=== PATIENT | female | born 1935 | race Caucasian/White ===

== ENCOUNTER → 2017-12-23 11:40 | Outpatient (CLI) | payer OTHER, SELFPAY ==
--- NOTE | 2017-12-23 11:42 | DI.RAD.S_ITS ---
PROCEDURE: XR LUMBAR SPINE 2-3V INDICATIONS: chronic low back pain TECHNIQUE: 3 views of the lumbar spine were acquired. COMPARISON: [facility], , L-SPINE 2-3 VIEWS, 03/21/2015, 10:54. FINDINGS: Bones: 5 lbg-[id number] vertebrae are present. There is slight anterolisthesis at L4-5 unchanged. Degenerative disc narrowing at all lumbar levels. Facet sclerosis L3-S1. No vertebral body compression fractures. No suspicious bony lesions. Soft tissues: Overlying bowel gas pattern is normal. No suspicious soft tissue calcifications. IMPRESSION: No acute bony abnormality. 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 Dictated by: Denilson Srivastava M.D. on 12/23/2017 at 12:05 Approved by: Denilson Srivastava M.D. on 12/23/2017 at 12:08
== END ==
PROVIDERS: Family Provider Physician Assistant; PCP Physician Assistant; Visit Provider Physician Assistant
DX: M51.36 Other intervertebral disc degeneration, lumbar region (principal); M47.816 Spondylosis without myelopathy or radiculopathy, lumbar region; M54.5 Low back pain; G89.29 Other chronic pain
CPT/HCPCS: 72100

== ENCOUNTER → 2017-12-26 12:33 | Outpatient (CLI) | payer OTHER, SELFPAY ==
--- NOTE | 2017-12-26 12:35 | DI.RAD.S_ITS ---
PROCEDURE: XR HIP W PEL IF DONE LT MIN 4V INDICATIONS: BILATERAL HIP PAIN TECHNIQUE: AP pelvis with lateral view(s) of the bilateral hip(s). COMPARISON: [facility], , XR PELVIS WITH BILATERAL HIPS, 06/18/2004, 15:25. FINDINGS: Bones: No fractures or dislocations. Pelvic ring appears intact. No suspicious bony lesions. Hip joint space narrowing is present bilaterally, associated with marginal spurring of the acetabula and femoral heads, left greater than right. Sacroiliac joints appear maintained. Soft tissues: The visualized bowel gas pattern is normal. No suspicious soft tissue calcifications. IMPRESSION: 1. No fracture dislocation or diastases. 2. Degenerative joint disease left greater than right. Dictated by: Denilson Srivastava M.D. on 12/26/2017 at 13:09 Approved by: Denilson Srivastava M.D. on 12/26/2017 at 13:11
== END ==
PROVIDERS: Family Provider Physician Assistant; PCP Physician Assistant; Visit Provider Physician Assistant
DX: M16.0 Bilateral primary osteoarthritis of hip (principal); M25.551 Pain in right hip; M25.552 Pain in left hip
CPT/HCPCS: 73522

== ENCOUNTER → 2018-02-27 13:18 | Outpatient (CLI) | payer OTHER, SELFPAY ==
--- NOTE | 2018-02-27 | DI.MRI.S_ITS ---
PROCEDURE: MR LUMBAR SPINE WO CON INDICATIONS: LOW BACK PAIN TECHNIQUE: Noncontrast sagittal T1 spin echo and T2 fast echo, sagittal STIR, axial T1 and T2 fast spin echo through the lumbar spine. In cases with scoliosis, additional coronal T2 fast spin echo may be performed. COMPARISON: [facility], CR, XR LUMBAR SPINE 2-3V, 12/23/2017, 11:25. FINDINGS: Image quality: Excellent. Alignment and Curvature: There is normal bony alignment. Bone Marrow: Scattered small Schmorl's nodes are present with adjacent marrow edema, in particular involving the superior endplate of L2 and superior endplate of L4. No acute vertebral body compression fractures. Spinal Cord: Conus medullaris terminates at the L1 level. Visualized cord demonstrates normal signal and size. Paraspinous Soft Tissues: No paravertebral masses. L1-L2: Mild broad-based posterior disc bulge bilateral facet disease. Mild canal narrowing. Mild left and right foraminal narrowing. L2-L3: Posterior fissure and broad-based posterior disc bulge. Bilateral facet arthropathy. There is also prominent dorsal epidural fat and associated severe canal stenosis. Mild right foraminal narrowing. No definite left foraminal stenosis. L3-L4: Broad-based posterior disc bulge and bilateral facet disease. Moderate canal stenosis which is exaggerated by dorsal epidural fat. Severe left and mild right foraminal narrowing. L4-L5: Posterior fissure with broad-based posterior disc bulge and bilateral facet disease. There is also prominent dorsal epidural lipomatosis. Mild to moderate canal narrowing. Mild to moderate right and mild left foraminal stenoses. L5-S1: Bilateral facet arthropathy. No canal stenosis. Mild bilateral foraminal stenoses. IMPRESSION: Severe canal stenosis at L2-L3. Moderate L4-L5 canal stenosis. Severe left L3-L4 foraminal narrowing Prominent multilevel dorsal epidural lipomatosis. Dictated by: Vasu Mahoney M.D. on 02/27/2018 at 15:48 Approved by: Vasu Mahoney M.D. on 02/27/2018 at 15:58
== END ==
PROVIDERS: Family Provider Physician Assistant; PCP Physician Assistant; Visit Provider Orthopaedic Surgery
DX: M48.061 Spinal stenosis, lumbar region without neurogenic claudication (principal); M54.5 Low back pain
CPT/HCPCS: 72148

== ENCOUNTER → 2018-03-10 09:18 | Outpatient (CLI) | payer OTHER, SELFPAY ==
[2018-03-10 10:10] LABS: Alanine Aminotransferase 32 IU/L (9-52); Albumin 4.5 g/dL (3.5-5.0); Albumin Globulin Ratio 1.7 (1.0-2.8); Alkaline Phosphatase 66 U/L (38-126); Aspartate Aminotransferase 35 IU/L (14-36); BUN Creatinine Ratio 14.4 (6-22); Bilirubin Total 0.7 mg/dL (0.2-1.3); Blood Urea Nitrogen 13 mg/dL (7-17); Calcium 9.6 mg/dL (8.4-10.2); Carbon Dioxide 29 mmol/L (22-32); Chloride 103 mmol/L (98-107); Cholesterol 252 mg/dL (140-199); Estimated Glomerular Filt Rate 59.9 mL/min (>60); Globulin 2.7 g/dL (1.7-4.1); Glucose 90 mg/dL (80-110); HDL Cholesterol 63 mg/dL (40-60); HEMOLYSIS < 15 (0-50); LDL Cholesterol Calculated 169 mg/dL (<100); Potassium 4.4 mmol/L (3.4-5.1); Sodium 141 mmol/L (137-145); Total Protein 7.2 g/dL (6.3-8.2); Triglycerides 101 mg/dL (35-150)
== END ==
PROVIDERS: Family Provider Physician Assistant; PCP Physician Assistant; Visit Provider Physician Assistant
DX: I10 Essential (primary) hypertension (principal); E78.5 Hyperlipidemia, unspecified
CPT/HCPCS: 36415; 80053; 80061

== ENCOUNTER → 2018-08-18 13:40 | Outpatient (CLI) | payer OTHER, SELFPAY ==
[2018-08-18 14:51] LABS: Aspartate Aminotransferase 33 IU/L (14-36); Cholesterol 173 mg/dL (140-199); HDL Cholesterol 70 mg/dL (40-60); LDL Cholesterol Calculated 75 mg/dL (<100); Triglycerides 140 mg/dL (35-150)
== END ==
PROVIDERS: PCP Physician Assistant; Visit Provider Internal Medicine Cardiovascular Disease
DX: I10 Essential (primary) hypertension (principal); E78.5 Hyperlipidemia, unspecified
CPT/HCPCS: 36415; 80061; 84450

== ENCOUNTER → 2018-09-26 10:26 | Outpatient (CLI) | payer OTHER, SELFPAY ==
--- NOTE | 2018-09-26 | DI.MG.S_ITS ---
BILATERAL DIGITAL SCREENING MAMMOGRAM 3D/2D WITH CAD: 09/26/2018 CLINICAL: Routine screening. Comparison is made to exams dated: 09/01/2017 mammogram, 08/23/2016 mammogram, and 08/20/2015 mammogram - [facility]. The tissue of both breasts is heterogeneously dense. This may lower the sensitivity of mammography. Current study was also evaluated with a Computer Aided Detection (CAD) system. There are benign vascular calcifications in both breasts. There are mole markers on the left breast. No significant masses, calcifications, or other findings are seen in either breast. There has been no significant interval change. IMPRESSION: There is no mammographic evidence of malignancy. A 1 year screening mammogram is recommended. This exam was interpreted at Station ID: [id number]. NOTE: For mammograms, a report in lay terms will be sent to the patient. Approximately 15% of breast malignancies will not be visualized mammographically. In the management of a palpable breast mass, a negative mammogram must not discourage biopsy of a clinically suspicious lesion. Electronically Signed By: Alex menchaca/car:09/26/2018 17:13:35 letter sent: Normal Exam ACR BI-RADS Category 2: Benign Finding(s) 3342F
== END ==
PROVIDERS: PCP Physician Assistant; Visit Provider Physician Assistant
DX: Z12.31 Encounter for screening mammogram for malignant neoplasm of breast (principal)
CPT/HCPCS: 77063; 77067

== ENCOUNTER → 2019-08-14 10:24 | Outpatient (CLI) | payer MEDICARE, SELFPAY ==
[2019-08-14 13:00] LABS: Alanine Aminotransferase 33 IU/L (<35); Albumin 4.4 g/dL (3.5-5.0); Albumin Globulin Ratio 1.7 (1.0-2.8); Alkaline Phosphatase 79 U/L (38-126); Aspartate Aminotransferase 41 IU/L (14-36); Bilirubin Total 0.6 mg/dL (0.2-1.3); Blood Urea Nitrogen 12 mg/dL (7-17); Calcium 9.8 mg/dL (8.4-10.2); Carbon Dioxide 28 mmol/L (22-32); Chloride 102 mmol/L (98-107); Cholesterol 186 mg/dL (140-199); Estimated Glomerular Filt Rate > 60.0 mL/min (>60); Globulin 2.6 g/dL (1.7-4.1); Glucose 99 mg/dL (80-110); HDL Cholesterol 60 mg/dL (40-60); HEMOLYSIS < 15 (0-50); LDL Cholesterol Calculated 97 mg/dL (<100); Potassium 4.5 mmol/L (3.4-5.1); Sodium 138 mmol/L (137-145); Triglycerides 147 mg/dL (35-150)
[2019-08-14 13:14] LABS: Free T3, Triiodothyronine Free 2.58 pg/mL (2.77-5.27); Free T4, Direct Thyroxine 0.71 ng/dL (0.78-2.19)
[2019-08-14 13:28] LABS: Thyroid Stimulating Hormone 0.43 uIU/mL (0.47-4.68)
[2019-08-14 14:27] LABS: Creatinine Urine Random 41.5 mg/dL
[2019-08-14 14:50] LABS: Microalbumi Creatinin Ratio Ur 14.4 ug/mg CR (<30); Microalbumin Urine Random < 0.6 mg/dL (0-1.6)
== END ==
PROVIDERS: PCP Physician Assistant; Referring Provider Physician Assistant; Visit Provider Physician Assistant
DX: E78.5 Hyperlipidemia, unspecified (principal); I10 Essential (primary) hypertension
CPT/HCPCS: 36415; 80053; 80061; 82043; 82570; 84439; 84443; 84481

== ENCOUNTER → 2019-11-12 16:52 | Outpatient (CLI) | payer MEDICARE, SELFPAY ==
[2019-11-12 17:54] LABS: Alanine Aminotransferase 22 IU/L (<35); Albumin 4.7 g/dL (3.5-5.0); Albumin Globulin Ratio 1.6 (1.0-2.8); Alkaline Phosphatase 94 U/L (38-126); Aspartate Aminotransferase 32 IU/L (14-36); BUN Creatinine Ratio 21.6 (6-22); Bilirubin Total 0.3 mg/dL (0.2-1.3); Blood Urea Nitrogen 16 mg/dL (7-17); Calcium 9.9 mg/dL (8.4-10.2); Carbon Dioxide 25 mmol/L (22-32); Chloride 106 mmol/L (98-107); Estimated Glomerular Filt Rate > 60.0 mL/min (>60); Globulin 2.9 g/dL (1.7-4.1); Glucose 93 mg/dL (80-110); HEMOLYSIS < 15 (0-50); Potassium 3.9 mmol/L (3.4-5.1); Sodium 141 mmol/L (137-145); Total Protein 7.6 g/dL (6.3-8.2)
[2019-11-12 18:03] LABS: NT-proBNP (BNP-Adult 18+) 77 pg/mL (<450)
== END ==
PROVIDERS: PCP Physician Assistant; Referring Provider Family Medicine; Visit Provider Family Medicine
DX: I10 Essential (primary) hypertension (principal)
CPT/HCPCS: 36415; 80053; 83880

== ENCOUNTER → 2020-01-01 11:02 | Outpatient (CLI) | payer MEDICARE, SELFPAY ==
--- NOTE | 2020-01-01 11:04 | DI.MG.S_ITS ---
BILATERAL DIGITAL SCREENING MAMMOGRAM 3D/2D WITH CAD: 01/01/2020 CLINICAL: Routine screening. Comparison is made to exams dated: 09/26/2018 mammogram, 09/01/2017 mammogram, and 08/23/2016 mammogram - [facility]. The tissue of both breasts is heterogeneously dense. This may lower the sensitivity of mammography. Current study was also evaluated with a Computer Aided Detection (CAD) system. There are benign calcifications in both breasts. There also are benign vascular calcifications in both breasts. There are mole markers on the left breast. No significant masses, calcifications, or other findings are seen in either breast. There has been no significant interval change. IMPRESSION: There is no mammographic evidence of malignancy. A 1 year screening mammogram is recommended. This exam was interpreted at Station ID: [id number]. NOTE: For mammograms, a report in lay terms will be sent to the patient. Approximately 15% of breast malignancies will not be visualized mammographically. In the management of a palpable breast mass, a negative mammogram must not discourage biopsy of a clinically suspicious lesion. Electronically Signed By: Jose blum/car:01/01/2020 12:34:33 copy to: LAURIE EASTON letter sent: Normal Exam ACR BI-RADS Category 2: Benign Finding(s) 3342F
== END ==
PROVIDERS: PCP Family Medicine; Referring Provider Family Medicine; Visit Provider Physician Assistant
DX: Z12.31 Encounter for screening mammogram for malignant neoplasm of breast (principal)
CPT/HCPCS: 77063; 77067

== ENCOUNTER → 2020-05-01 09:23 | Outpatient (CLI) | payer MEDICARE, SELFPAY ==
[2020-05-01 09:46] LABS: Hematocrit 39.1 % (36-46); Hemoglobin 12.9 g/dL (12.0-16.0); Mean Corpuscular HGB Conc 33.1 % (30-36); Mean Corpuscular Hemoglobin 30.9 PG (26-34); Mean Corpuscular Volume 93.3 fL (80-100); Platelet Count 236 X10^3/uL (150-400); Red Blood Cell Count 4.19 X10^6/uL (4.0-5.2); Red Cell Distribution Width 12.5 % (11.6-14.8); White Blood Cell Count 4.8 X10^3/uL (4.5-11.0)
[2020-05-01 10:01] LABS: Alanine Aminotransferase 22 IU/L (<35); Albumin 4.4 g/dL (3.5-5.0); Albumin Globulin Ratio 1.7 (1.0-2.8); Alkaline Phosphatase 67 U/L (38-126); Aspartate Aminotransferase 33 IU/L (14-36); BUN Creatinine Ratio 18.9 (6-22); Bilirubin Total 0.5 mg/dL (0.2-1.3); Blood Urea Nitrogen 17 mg/dL (7-17); Calcium 9.4 mg/dL (8.4-10.2); Carbon Dioxide 31 mmol/L (22-32); Chloride 97 mmol/L (98-107); Estimated Glomerular Filt Rate 59.7 mL/min (>60); Globulin 2.6 g/dL (1.7-4.1); Glucose 97 mg/dL (80-110); HEMOLYSIS < 15 (0-50); Sodium 129 mmol/L (137-145)
[2020-05-01 10:57] LABS: Free T3, Triiodothyronine Free 2.03 pg/mL (2.77-5.27); Free T4, Direct Thyroxine 0.82 ng/dL (0.78-2.19)
[2020-05-01 11:11] LABS: Thyroid Stimulating Hormone 0.863 uIU/mL (0.47-4.68)
== END ==
PROVIDERS: PCP Nurse Practitioner Family; Referring Provider Nurse Practitioner Family; Visit Provider Nurse Practitioner Family
DX: R79.89 Other specified abnormal findings of blood chemistry (principal); I10 Essential (primary) hypertension; Z00.00 Encounter for general adult medical examination without abnormal findings
CPT/HCPCS: 36415; 80053; 84439; 84443; 84481; 85027

== ENCOUNTER → 2020-05-07 12:29 | Outpatient (CLI) | payer MEDICARE, SELFPAY | PROVIDERS: PCP Nurse Practitioner Family; Referring Provider Nurse Practitioner Family; Visit Provider Nurse Practitioner Family | DX: M85.851 Other specified disorders of bone density and structure, right thigh (principal); Z78.0 Asymptomatic menopausal state; Z87.891 Personal history of nicotine dependence | CPT/HCPCS: 77080 ==

== ENCOUNTER → 2020-10-22 08:36 | Outpatient (CLI) | payer MEDICARE, SELFPAY ==
[2020-10-22 09:57] LABS: BUN Creatinine Ratio 18.8 (6-22); Blood Urea Nitrogen 16 mg/dL (7-17); Calcium 9.7 mg/dL (8.4-10.2); Carbon Dioxide 28 mmol/L (22-32); Chloride 99 mmol/L (98-107); Estimated Glomerular Filt Rate > 60.0 mL/min (>60); Glucose 94 mg/dL (80-110); HEMOLYSIS < 15 (0-50); Potassium 4.1 mmol/L (3.4-5.1); Sodium 133 mmol/L (137-145)
== END ==
PROVIDERS: PCP Nurse Practitioner Family; Referring Provider Nurse Practitioner Family; Visit Provider Nurse Practitioner Family
DX: E87.1 Hypo-osmolality and hyponatremia (principal); I10 Essential (primary) hypertension
CPT/HCPCS: 36415; 80048

== ENCOUNTER → 2020-12-03 13:51 | Outpatient (CLI) | payer MEDICARE, SELFPAY ==
--- NOTE | 2020-12-03 13:52 | DI.RAD.S_ITS ---
PROCEDURE: XR LUMBAR SPINE 2-3V INDICATIONS: back pain TECHNIQUE: 3 views of the lumbar spine were acquired. COMPARISON: [facility], CR, XR LUMBAR SPINE 2-3V, 12/23/2017, 11:25. FINDINGS: Bones: 5 lcz-mrk-[id number] vertebrae are present. Endplate sclerosis. Small osteophytes. Multilevel intervertebral disc space height sign poss. There is normal bony alignment. No vertebral body compression fractures. No suspicious bony lesions. Soft tissues: Overlying bowel gas pattern is normal. No suspicious soft tissue calcifications. IMPRESSION: Ibch-mo-pomcaxpp degenerative change in the lumbar spine. Dictated by: Tae Zamora M.D. on 12/03/2020 at 16:39 Approved by: Tae Zamora M.D. on 12/03/2020 at 16:42
--- NOTE | 2020-12-03 13:52 | DI.RAD.S_ITS ---
PROCEDURE: XR THORACIC SPINE 2V INDICATIONS: back pain TECHNIQUE: 3 views of the thoracic spine were acquired. COMPARISON: None. FINDINGS: Bones: No fractures or dislocations. No suspicious bony lesions. Moderate degenerative change in the thoracic spine. 12 pairs of ribs are noted, and appear intact where visualized. Soft tissues: No paravertebral stripe thickening. IMPRESSION: Moderate degenerative change in the thoracic spine. Dictated by: Tae Zamora M.D. on 12/03/2020 at 16:37 Approved by: Tae Zamora M.D. on 12/03/2020 at 16:39
--- NOTE | 2020-12-03 13:52 | DI.RAD.S_ITS ---
PROCEDURE: XR CERVICAL SPINE 2V OR 3V INDICATIONS: back pain TECHNIQUE: 3 view(s) of the cervical spine were acquired. COMPARISON: None. FINDINGS: Bones: No fractures or dislocations to the T1 level. Severe degenerative change the cervical spine. The lateral masses of C1 appear intact on the odontoid view. No suspicious bony lesions. Soft tissues: No prevertebral soft tissue swelling. IMPRESSION: Severe cervical spine degenerative change. Dictated by: Tae Zamora M.D. on 12/03/2020 at 16:29 Approved by: Tae Zamora M.D. on 12/03/2020 at 16:37
== END ==
PROVIDERS: PCP Nurse Practitioner Family; Referring Provider Nurse Practitioner Family; Visit Provider Nurse Practitioner Family
DX: M48.061 Spinal stenosis, lumbar region without neurogenic claudication (principal); M54.9 Dorsalgia, unspecified
CPT/HCPCS: 72040; 72070; 72100

== ENCOUNTER → 2021-01-21 11:14 | Outpatient (CLI) | payer MEDICARE, SELFPAY ==
--- NOTE | 2021-01-21 11:16 | DI.MG.S_ITS ---
BILATERAL DIGITAL SCREENING MAMMOGRAM 3D/2D WITH CAD: 01/21/2021 CLINICAL: Routine screening. Comparison is made to exams dated: 01/01/2020 mammogram, 09/26/2018 mammogram, and 09/01/2017 mammogram - [facility]. The tissue of both breasts is heterogeneously dense. This may lower the sensitivity of mammography. Current study was also evaluated with a Computer Aided Detection (CAD) system. There are benign calcifications in both breasts. There also are benign vascular calcifications in both breasts. There are mole markers on the left breast. No significant masses, calcifications, or other findings are seen in either breast. There has been no significant interval change. IMPRESSION: BENIGN There is no mammographic evidence of malignancy. A 1 year screening mammogram is recommended. This exam was interpreted at Station ID: [id number]. NOTE: For mammograms, a report in lay terms will be sent to the patient. Approximately 15% of breast malignancies will not be visualized mammographically. In the management of a palpable breast mass, a negative mammogram must not discourage biopsy of a clinically suspicious lesion. Electronically Signed By: Jose blum/car:01/21/2021 11:42:51 copy to: LAURIE EASTON letter sent: Normal Exam ACR BI-RADS Category 2: Benign Finding(s) 3342F
== END ==
PROVIDERS: PCP Nurse Practitioner Family; Referring Provider Nurse Practitioner Family; Visit Provider Nurse Practitioner Family
DX: Z12.31 Encounter for screening mammogram for malignant neoplasm of breast (principal)
CPT/HCPCS: 77063; 77067

== ENCOUNTER → 2021-04-20 09:49 | Outpatient (CLI) | payer MEDICARE, SELFPAY ==
[2021-04-20 11:23] LABS: BUN Creatinine Ratio 18.8 (6-22); Blood Urea Nitrogen 15 mg/dL (7-17); Calcium 9.8 mg/dL (8.4-10.2); Carbon Dioxide 28 mmol/L (22-32); Chloride 99 mmol/L (98-107); Cholesterol 184 mg/dL (140-199); Estimated Glomerular Filt Rate > 60.0 mL/min (>60); Glucose 95 mg/dL (80-110); HDL Cholesterol 76 mg/dL (40-60); HEMOLYSIS < 15 (0-50); LDL Cholesterol Calculated 90 mg/dL (<100); Potassium 4.9 mmol/L (3.4-5.1); Sodium 133 mmol/L (137-145); Triglycerides 92 mg/dL (35-150)
[2021-04-20 11:33] LABS: Vitamin D 25 Hydroxy (D3) 59.9 ng/mL (30.0-100.0)
== END ==
PROVIDERS: PCP Nurse Practitioner Family; Referring Provider Nurse Practitioner Family; Visit Provider Nurse Practitioner Family
DX: E78.5 Hyperlipidemia, unspecified (principal); M85.89 Other specified disorders of bone density and structure, multiple sites; E87.1 Hypo-osmolality and hyponatremia
CPT/HCPCS: 36415; 80048; 80061; 82306

== ENCOUNTER → 2021-06-22 11:11 | Outpatient (CLI) | payer MEDICARE, SELFPAY ==
--- NOTE | 2021-06-22 11:13 | DI.RAD.S_ITS ---
PROCEDURE: XR KNEE RT 3V INDICATIONS: R knee pain/swelling, no injury TECHNIQUE: 3 views of the knee were acquired. COMPARISON: None. FINDINGS: Bones: Mild tricompartmental knee joint space narrowing with periarticular osteophyte formation. Soft tissues: Large joint effusion. No suspicious soft tissue calcifications. Vascular calcifications indicate atherosclerosis. IMPRESSION: Mild knee joint degeneration. Dictated by: Sean Magaña RR Interpreted: Tip Gonzalez MD on 06/22/2021 at 13:10 Transcribed by: JAY on 06/22/2021 at 13:12 Approved by: Tip Gonzalez M.D. on 06/22/2021 at 13:28
== END ==
PROVIDERS: PCP Nurse Practitioner Family; Referring Provider Registered Nurse Diabetes Educator; Visit Provider Registered Nurse Diabetes Educator
DX: M17.11 Unilateral primary osteoarthritis, right knee (principal); M25.561 Pain in right knee
CPT/HCPCS: 73562

== ENCOUNTER → 2021-09-29 11:08 | Outpatient (CLI) | payer MEDICARE, SELFPAY ==
--- NOTE | 2021-09-29 | DI.MRI.S_ITS ---
PROCEDURE: MR KNEE RT WO CON INDICATIONS: Pain in right knee TECHNIQUE: Noncontrast sagittal PD fast spin echo and T2 fast spin echo with fat saturation, sagittal 3-D FLASH with fat saturation; coronal T1 spin echo and PD fast spin echo with fat saturation, and axial PD fast spin echo with fat saturation through the knee. COMPARISON: [facility], CR, XR KNEE RT 3V, 06/22/2021, 11:18. FINDINGS: Image quality: Excellent. Menisci: Medial extrusion of the medial meniscus. Linear oblique high signal intensity traverses the medial meniscal body demonstrating inferior articular surface extension. Amorphous high signal intensity within the posterior horn medial meniscus is present demonstrating superior and inferior articular surface extension, indicating degenerative tearing. Lateral meniscus is intact. Cruciate ligaments: The anterior and posterior cruciate ligaments appear intact. Medial structures: The medial collateral ligament appears intact. Visualized portions of the pes anserinus tendons appear normal. No abnormal bursal fluid. Lateral structures: The lateral collateral ligament demonstrates mild T2 signal elevation at the femoral origin. The corwin and short heads of the biceps femoris tendon appear intact. The popliteus tendon appears normal. Iliotibial band appears normal. Anterior structures: The quadriceps and patellar tendons appear intact. Mild T2 signal elevation within the quadriceps and patellar tendons at the patellar insertion sites. Patellar alignment is normal. No femoral trochlear dysplasia or ventral trochlear prominence. No edema in the infrapatellar fat pad. Bones and cartilage: No bone marrow contusions or fractures. Mild tricompartmental periarticular osteophyte formation. Severe articular cartilage loss diffusely overlies the weight-bearing aspects of the medial femoral condyle and medial tibial plateau. Mild articular cartilage loss overlies the medial and lateral patellar facets. Joint space: There is a small knee joint effusion and a small ganglion cyst along the popliteus.. No Canales's cyst. Normal appearing synovial plicae are incidentally noted. IMPRESSION: 1. Tricompartmental osteoarthritis with associated articular cartilage loss. 2. Medial meniscal tearing. 3. Low-grade lateral collateral ligament tear. 4. Knee joint effusion. Dictated by: Lawrence Sommers M.D. on 09/29/2021 at 13:37 Approved by: Lawrence Sommers M.D. on 09/29/2021 at 13:39
== END ==
PROVIDERS: PCP Nurse Practitioner Family; Referring Provider Orthopaedic Surgery; Visit Provider Orthopaedic Surgery
DX: S83.241A Other tear of medial meniscus, current injury, right knee, initial encounter (principal); S83.421A Sprain of lateral collateral ligament of right knee, initial encounter; M17.11 Unilateral primary osteoarthritis, right knee; M25.461 Effusion, right knee; M25.561 Pain in right knee
CPT/HCPCS: 73721

== ENCOUNTER → 2022-01-12 09:54 | Outpatient (CLI) | payer MEDICARE, SELFPAY ==
[2022-01-12 12:09] LABS: Add Manual Diff / Slide Review NO; Basophils Absolute Auto 0 /uL (0-100); Basophils Percent Auto 0.8 % (0-2); Eosinophils Absolute Auto 200 /uL (0-450); Eosinophils Percent Auto 5.4 % (2-4); Hematocrit 36.9 % (36-46); Hemoglobin 12.7 g/dL (12.0-16.0); Lymphocytes Absolute Auto 1700 /uL (1100-4500); Mean Corpuscular HGB Conc 34.6 % (30-36); Mean Corpuscular Hemoglobin 31.7 PG (26-34); Mean Corpuscular Volume 91.7 fL (80-100); Monocytes Absolute Auto 500 /uL (0-900); Neutrophils Absolute Auto 2100 /uL (1500-7000); Neutrophils Percent Auto 46.8 % (50-75); Platelet Count 214 X10^3/uL (150-400); Red Blood Cell Count 4.02 X10^6/uL (4.0-5.2); White Blood Cell Count 4.6 X10^3/uL (4.5-11.0)
[2022-01-12 13:07] LABS: Alanine Aminotransferase 19 IU/L (<35); Albumin 4.4 g/dL (3.5-5.0); Albumin Globulin Ratio 2.2 (1.0-2.8); Alkaline Phosphatase 64 U/L (38-126); Aspartate Aminotransferase 31 IU/L (14-36); Bilirubin Total 0.6 mg/dL (0.2-1.3); Blood Urea Nitrogen 18 mg/dL (7-17); Calcium 9.4 mg/dL (8.4-10.2); Carbon Dioxide 27 mmol/L (22-32); Chloride 97 mmol/L (98-107); Estimated Glomerular Filt Rate 55 mL/min (>60); Glucose 91 mg/dL (80-110); HEMOLYSIS < 15 (0-50); Potassium 4.2 mmol/L (3.4-5.1); Sodium 132 mmol/L (137-145); Total Protein 6.4 g/dL (6.3-8.2)
[2022-01-12 13:48] LABS: Free T4, Direct Thyroxine 0.81 ng/dL (0.78-2.19)
[2022-01-12 13:49] LABS: Vitamin B12 697 pg/mL (239-931)
[2022-01-12 14:02] LABS: Thyroid Stimulating Hormone 0.855 uIU/mL (0.47-4.68)
== END ==
PROVIDERS: PCP Family Medicine; Referring Provider Family Medicine; Visit Provider Family Medicine
DX: E78.5 Hyperlipidemia, unspecified (principal); I10 Essential (primary) hypertension; R79.89 Other specified abnormal findings of blood chemistry
CPT/HCPCS: 36415; 80053; 82607; 84439; 84443; 85025

== ENCOUNTER → 2022-03-25 11:17 | Outpatient (CLI) | payer MEDICARE, SELFPAY ==
--- NOTE | 2022-03-25 11:21 | DI.RAD.S_ITS ---
PROCEDURE: XR LUMBAR SPINE 2-3V INDICATIONS: progressive lower back pain TECHNIQUE: 3 views of the lumbar spine were acquired. COMPARISON: [facility], CR, XR LUMBAR SPINE 2-3V, 12/03/2020, 13:52. FINDINGS: Bones: 5 [id number] vertebrae are present. There is normal bony alignment. Multilevel disc space narrowing and endplate osteophyte formation. Facet hypertrophy throughout the lumbar spine. No vertebral body compression fractures. No suspicious bony lesions. Soft tissues: Overlying bowel gas pattern is normal. No suspicious soft tissue calcifications. IMPRESSION: Multilevel degenerative disc and facet disease. No acute fracture. No osseous lesion. If symptoms and/or clinical suspicion for pathology persist, further assessment with repeat, or advanced imaging (e.g., CT, MRI, or bone scan) may be helpful for further assessment. Dictated by: Lawrence Sommers M.D. on 03/25/2022 at 13:37 Transcribed by: KIRBY on 03/25/2022 at 13:38 Approved by: Lawrence Sommers M.D. on 03/25/2022 at 16:36
== END ==
PROVIDERS: PCP Family Medicine; Referring Provider Family Medicine; Visit Provider Family Medicine
DX: M54.50 Low back pain, unspecified (principal); M51.36 Other intervertebral disc degeneration, lumbar region; M47.816 Spondylosis without myelopathy or radiculopathy, lumbar region
CPT/HCPCS: 72100

== ENCOUNTER → 2022-04-01 14:42 | Outpatient (CLI) | payer MEDICARE, SELFPAY ==
--- NOTE | 2022-04-01 14:43 | DI.MG.S_ITS ---
BILATERAL DIGITAL SCREENING MAMMOGRAM 3D/2D WITH CAD: 04/01/2022 CLINICAL: Routine screening. Comparison is made to exams dated: 01/21/2021 mammogram, 01/01/2020 mammogram, and 09/26/2018 mammogram - [facility]. Both breasts are heterogeneously dense, which may obscure small masses (category c / 51-75% glandular tissue). Current study was also evaluated with a Computer Aided Detection (CAD) system. There are benign calcifications in both breasts. There also are benign vascular calcifications in both breasts. There are mole markers on the left breast. No significant masses, calcifications, or other findings are seen in either breast. There has been no significant interval change. IMPRESSION: BENIGN There is no mammographic evidence of malignancy. A 1 year screening mammogram is recommended. This exam was interpreted at Station ID: [id number]. NOTE: For mammograms, a report in lay terms will be sent to the patient. Approximately 15% of breast malignancies will not be visualized mammographically. In the management of a palpable breast mass, a negative mammogram must not discourage biopsy of a clinically suspicious lesion. Electronically Signed By: Alli novoa/car:04/01/2022 15:11:13 copy to: LAURIE EASTON letter sent: Normal Exam ACR BI-RADS Category 2: Benign Finding(s) [id number]
== END ==
PROVIDERS: PCP Family Medicine; Referring Provider Family Medicine; Visit Provider Family Medicine
DX: Z12.31 Encounter for screening mammogram for malignant neoplasm of breast (principal)
CPT/HCPCS: 77063; 77067

== ENCOUNTER → 2022-08-25 17:15 | Outpatient (CLI) | payer MEDICARE, SELFPAY ==
--- NOTE | 2022-08-25 17:18 | DI.MRI.S_ITS ---
PROCEDURE: MR LUMBAR SPINE WO CON INDICATIONS: spinal stenosis TECHNIQUE: Noncontrast sagittal T1 spin echo and T2 fast echo, sagittal STIR, and T2 fast spin echo through the lumbar spine. In cases with scoliosis, additional coronal T2 fast spin echo may be performed. COMPARISON: [facility], MR, MR LUMBAR SPINE WO CON, 02/27/2018, 13:35. [facility], CR, XR LUMBAR SPINE 2-3V, 03/25/2022, 11:25. FINDINGS: Image quality: This examination is limited by involuntary motion artifact. Alignment and Curvature: Minimal retrolisthesis is seen at L1-L2 and there is minimal anterolisthesis seen at L4-L5 and L5-S1. Bone Marrow: Marrow is of normal overall signal. No acute vertebral body compression fractures. Spinal Cord: Conus medullaris terminates at the L1 level. Visualized cord demonstrates normal signal and size. Paraspinous Soft Tissues: No paravertebral masses. T12-L1: Normal appearance. L1-L2: Moderate loss of disc height is seen. Loss of disc signal is seen. Moderate disc bulge is seen, which is eccentric to the right. There is a superimposed central disc protrusion. Reactive marrow endplate changes are seen, which are hyperintense on T1-weighted and T2-weighted imaging and most consistent with fatty metaplasia (Modic type II changes). Moderate facet joint hypertrophy is seen. There is moderate right-sided and mild left-sided neural foraminal narrowing. Mild central canal narrowing is seen. These imaging findings have progressed compared to the prior study. L2-L3: The disc height is well-preserved. Loss of disc signal is seen at this level. Reactive marrow endplate changes are seen, which demonstrate mixed T1 weighted and T2-weighted signal, and are attributed to a combination of edema and fatty metaplasia (Modic type I and Modic type II changes). Moderate disc bulge is seen, which is eccentric to the right side. Moderate facet joint hypertrophy is seen. There is moderate right-sided and mild left-sided neural foraminal narrowing. At least moderate central canal narrowing is seen, as on series 5, image 19. These degenerative changes are worse than in 2018. L3-L4: At least moderate loss of disc height and disc signal can be seen. Reactive marrow endplate changes are seen, which are hyperintense on T1-weighted and T2-weighted imaging and most consistent with fatty metaplasia (Modic type II changes). Moderate disc bulge is seen, which is eccentric to the left side. Moderate facet joint hypertrophy is seen. There is moderate left-sided and hztr-lk-wdzijevo right-sided neural foraminal narrowing. Moderate central canal narrowing is seen. There is mild progression of degenerative change compared to 2019. L4-L5: Mild loss of disc height is seen. Loss of disc signal is seen. There is a superimposed central disc protrusion. Prominent facet hypertrophy seen, left worse than right. At least moderate neural foraminal narrowing can be seen on both sides. There is a degree of compression seen upon the exiting nerve roots. Moderate central canal narrowing is seen. There is minimal progression of degenerative change compared to 2018. L5-S1: The disc height is well-preserved. Loss of disc signal is seen at this level. Mild to moderate disc bulge is seen, which is eccentric to the right. At least moderate facet hypertrophy is seen. There is moderate left-sided and mild right-sided neural foraminal narrowing. No significant central canal narrowing is seen. These imaging findings have progressed compared to the prior study. IMPRESSION: Multiple levels of lumbar spine degenerative change are seen, which are overall worst inferiorly. There is progression of degenerative change compared to 2018. Dictated by: João Montemayor M.D. on 08/26/2022 at 11:35 Approved by: João Montemayor M.D. on 08/26/2022 at 11:45
== END ==
PROVIDERS: PCP Family Medicine; Referring Provider Nurse Practitioner Family; Visit Provider Nurse Practitioner Family
DX: M48.061 Spinal stenosis, lumbar region without neurogenic claudication (principal); M47.816 Spondylosis without myelopathy or radiculopathy, lumbar region; M47.817 Spondylosis without myelopathy or radiculopathy, lumbosacral region
CPT/HCPCS: 72148

== ENCOUNTER 2022-10-26 10:30 | Outpatient (RCR) | payer MEDICARE, SELFPAY ==
--- NOTE | 2022-10-08 19:55 | PT.OPPOC ---
Physical, Occupational & Speech Therapy At [facility] Current Diagnoses Primary osteoarthritis, right hand (10/08/22) Visit Care Team Role Provider Type Humberto Rogers DO Family Provider Physician Primary Care Provider Specialty: Family Practice Address: [address] [place] [address], [id number] Email: [email or web address] Attending Provider Advanced Insurance Risk Manager Referring Provider Specialty: Medical Address: [address] [place] [address], [address] Email: [email or web address] Plan Of Care PT-OP-T Assessment and Plan Start: 09/23/22 18:58 Freq: Status: Active Protocol: Document 10/08/22 11:21 LRN (Rec: 10/08/22 12:20 LRN [id number]) Physical Therapy Assessment Rehab Potential Rehabilitation Potential Good Evaluation Complexity Number of Personal Factors/Comorbidities 1-2 Number of Body Systems Impaired 4 or More Clinical Presentation at Evaluation Evolving Impairments Impairments Activity Tolerance,Pain, Posture,Sensation,Soft Tissue Mobility,Strength Goals Four Impairment R middle finger locking Short Term Goal (STG) Pt will wear a neutral positioning splint for R middle finger at nighttime to prevent locking. STG Duration 11/19/22 Intermediate Goal (LTG) Pt will be educated in self care techniques to reduce trigger finger locking. LTG Duration 01/07/23 Three Impairment Decreased R hand strength Impairment Ground Crewman strength is: R hand: 7 kg or 5#, L hand 12 kg or 22#. Norm for 75+ women: R hand 42 .6#, L hand 37.6# Short Term Goal (STG) Pt will be independent in self care finger tendon glides. STG Duration 11/19/22 Intermediate Goal (LTG) Improve hand strength with modification to cleaning team member handles to surfaces as need to cook without causing locking of the R middle finger in flexion. LTG Duration 01/07/23 Two Impairment R thumb and R middle finger pain limiting function. Impairment R thenar eminence pain rated 4 /10, R middle finger pain rated 3/10. UE Quickdash score 38.63 (20- 39% impaired, score 20-39) Short Term Goal (STG) Pt will show knowledge in self care techniques to reduce pain and inflammation of the R hand. STG Duration 10/15/22 Intermediate Goal (LTG) Decrease R thumb pain to 0-1/ 10 and eliminated locking of R middle finger with improved function per UE Quickdash score (27 or less). LTG Duration 01/07/23 One Impairment Lacks appropriates self care HEP. Short Term Goal (STG) Pt will be educated in proper body mechanics for ADLs, and proper sitting/standing/ sleeping posture. STG Duration 10/29/22 Product Demonstrator Goal (LTG) Pt will be independent in an effective self care HEP of neck, R shoulder, wrist & finger ROM & strengthening ex' s. LTG Duration 01/07/23 Assessment Summary Assessment Pt is an 87 year old female who presents with R forearm, wrist and thumb pain and neurological changes (numbness ) on waking in the morning and pain with use of the hand for slicing food, and gripping. The pt's pain appears to involve the R radial nerve, with neural tension present in the ulnar nerve. DTR is absent for R brachialradialis. She has weakness of the R wrist flexors (C7) and thumb/R middle finger for flexion (C8 ), Extension (C8) and AB (T1), and AD. The pt also indicates with sleeping she is not aware of her head/neck positioning; therefore cervical involvement is possible, but further assessment is needed. 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 Her R middle finger shows signs of trigger finger; therefore if improvement is not seen in a couple of weeks the pt should consider an orthopedic hand specialist consult. The pt will benefit from skilled physical therapy to work towards achieving the above stated goals. Physical Therapy Plan Frequency and Duration Frequency of Treatment 2x/Week Plan of Care Start Date 10/08/22 Plan of Care End Date 01/07/23 Therapeutic Interventions Therapeutic Interventions Home Exercise Program,Joint Mobilizations,Manual Therapy, Patient/Caregiver Education, Self-Care/Home Management,Soft Tissue Mobilization,Taping, Therapeutic Activities, Therapeutic Exercises Modalities Cold Pack/Ice Massage,Hot Packs Next Visit Focus/Plan Next Note Type Treatment Note Next Visit Plan Assess response to nighttime positioning education. Palp over A1 Pully for rubbing or clicking with middle finger ext. Assess neck (ROM/special tests ) for cervical involvement of hand pain, check triceps DTRs, assess R carpal mobility. Assess shoulder ROM/strength if needed and start radial n glides. Modalities: Contrast bath Hot /cold treatment with education for self care program, splinting. STM: R neck, brachium, forearm , thumb & R middle finger. Manual: Cervical gentle traction Ex: UE neural glides (radial, ulnar), neck/shoulder elbow, wrist stretch. ?General conditioning. Plan of Care Dates Plan of Care Start Date 10/08/22 Plan of Care End Date 01/07/23 Electronically Signed by: Tiffanie Cramer, PT 10/08/22 8088 If you are in agreement with this Plan of Care, please return a signed and dated copy. I have reviewed this Plan of Care and certify that the skilled therapy services above are required to meet the patient?s needs. Physician Signature Date Printed Name and Credentials Clinical Instructor Signature Printed Name and Credentials
--- NOTE | 2022-10-08 19:55 | PT.OIE ---
Current Diagnoses Primary osteoarthritis, right hand (10/08/22) Past Medical History (Last Reviewed 05/19/22 @ 19:16 by Humberto Rogers DO) Decreased thyroid stimulating hormone level Depression Essential hypertension (07/11/17) Glaucoma (11/03/10) Hyperlipidemia (11/03/10) Hypertension Hyponatremia Mixed anxiety depressive disorder Osteopenia (07/2008) Renal insufficiency Right knee pain Visit Care Team Role Provider Type Humberto Rogers DO Family Provider Physician Primary Care Provider Specialty: Family Practice Address: [address] [place] [address] Email: [email or web address] Attending Provider Advanced Division Commander Referring Provider Specialty: Medical Address: [address] [place] [address], [facility] Email: [email or web address] Physical Therapy Initial Evaluation PT-OP-A Visit Information Start: 09/23/22 18:58 Freq: Status: Active Protocol: Document 10/08/22 11:21 LRN (Rec: 10/08/22 12:20 LRN [id number]) Out-Patient Physical Therapy Visit Information Visit Information Visit Type Initial Evaluation Visit Start Time 11:21 Visit Stop Time 12:18 Total Visit Minutes 57 Visit Number 1 Evaluation Information Evaluation Date 10/08/22 Precautions Precautions Controlled HBP, arthritis. PT-OP-B Current Condition Start: 09/23/22 18:58 Freq: Status: Active Protocol: Document 10/08/22 11:21 LRN (Rec: 10/08/22 12:20 LRN [id number]) Current Condition History of Current Condition Onset Date 07/04/2021 Current Complaints Pain in R thumb, thenar ms & R middle PIP jt gets stuck in flexion. History of Current Condition Insidious onset of R hand dysfunction. 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 Sometimes sleeping, there is numbness in the R forearm medially and pain. Prior Treatments and Tests No treatments or testing. Future Testing and Treatments Planned No Developmental History Developmental History A few years ago fell foward onto her face and tried to catch herself with her hands. Hurt her R knee, but doesn't recall hurting her hand. 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 Personal Factors Other Personal Factors That May Effect arthritis, fall history. Therapy/Recovery PT-OP-C Subjective Start: 09/23/22 18:58 Freq: Status: Active Protocol: Document 10/08/22 11:21 LRN (Rec: 10/08/22 12:20 LRN [id number]) Patient Questionnaires Quick Dash- Upper Extremity Quick Dash UE Score 38.63 Quick Dash UE Impairment 20 to 39% Impaired (Score 20- 39) OP-PT Pain Assessment Pain Assessment Grid Paper Pain Assessment Grid Completed Yes Location R middle finger PIP jt Pain Location Details R middle finger Intensity 4 Scale Used Numeric (0 - 10) Description- Other With flexion of the joint, it gets stuck. Frequency Intermittent R thumb Pain Location Details Thenar eminence Intensity 3 Scale Used Numeric (0 - 10) Description Aching,Tightness Frequency Constant Pain Alleviating Factors None PT-OP-H Neuro Start: 09/23/22 18:58 Freq: Status: Active Protocol: Document 10/08/22 11:21 LRN (Rec: 10/08/22 12:20 LRN [id number]) Sensation Evaluation Gross Sensation Gross Sensation Right UE Impaired Sensation Description Numbness Comments Summary Comments Waking in the morning pt has numbness/tingling in the R anterior forearm and hand. Deep Tendon Reflex & Clonus Assessment Deep Tendon Reflex Right Bicep Deep Tendon Reflex 1+ Diminished Left Bicep Deep Tendon Reflex 2+ Normal Right Brachioradialis Deep Tendon Reflex 0 Absent Left Brachioradialis Deep Tendon Reflex 1+ Diminished PT-OP-J Posture/Palpation/Skin Start: 09/23/22 18:58 Freq: Status: Active Protocol: Document 10/08/22 11:21 LRN (Rec: 10/08/22 12:20 LRN [id number]) Posture Evaluation Position Standing Head/C-Spine Posture Forward Head T-Spine Posture Flattened Shoulder Posture (R) Elevated Scapula Posture (R) Elevated Arm Posture (L) Internally Rotated,(R) Internally Rotated Comments Posture Comments Dowagers hump Palpation Assessment Location R thenar eminence Palpation Location Thenar eminence Palpation Findings Tenderness R forearm Palpation Location Medial to brachioradialis. Palpation Findings Tenderness PT-OP-K Range of Motion Start: 09/23/22 18:58 Freq: Status: Active Protocol: Document 10/08/22 11:21 LRN (Rec: 10/08/22 12:20 LRN [id number]) Wrist Goniometric Range of Motion Wrist Right Wrist ROM WFL No Flexion Active (degrees) 40 Extension Active (degrees) 45 Left Wrist ROM WFL Yes Flexion Active (degrees) 65 Extension Active (degrees) 50 ROM Limitations Comments R wrist ext w/elbow flexed is 45 deg's (L is 50 deg's) R wrist ext w/elbow extended is 60 deg's (L is 55 deg's) PT-OP-L Special Tests Start: 09/23/22 18:58 Freq: Status: Active Protocol: Document 10/08/22 11:21 LRN (Rec: 10/08/22 12:20 LRN [id number]) Special Tests Wrist/Hand Special Tests Phalen's Test Test Results - bilaterally CMC Load & Grind Test Results + R thumb Comments Indicative of CMC arthritis. Enma's Test Results - R wrist Comments Negative for [place]veins Neural Special Tests- Upper Body Median Nerve Tension Test Results - RUE Comments Not formally tested. Ulnar Nerve Tension Test Results + RUE Radial Nerve Tension Test Results + RUE PT-OP-M Strength Start: 09/23/22 18:58 Freq: Status: Active Protocol: Document 10/08/22 11:21 LRN (Rec: 10/08/22 12:20 LRN [id number]) Wrist Strength Wrist Manual Muscle Testing Right Flexion (C7) 4- Good- Extension (C6) 5 Normal Ulnar Deviation 5 Normal Radial Deviation 5 Normal Comments Pain in thenar eminence with MMT of flexion Left Flexion (C7) 5 Normal Extension (C6) 5 Normal Ulnar Deviation 5 Normal Radial Deviation 5 Normal Finger/Thumb Strength Finger Manual Muscle Testing Right Third Flexion (fingers C8) 4+ Good+ Extension (thumb C8) 3 Fair Adduction 3 Fair Abduction (fingers T1) 3 Fair Left Third Flexion (fingers C8) 5 Normal Extension (thumb C8) 5 Normal Adduction 5 Normal Abduction (fingers T1) 5 Normal Right Thumb Flexion (fingers C8) 3 Fair Extension (thumb C8) 5 Normal Adduction 5 Normal Abduction (fingers T1) 4+ Good+ Left Thumb Flexion (fingers C8) 5 Normal Extension (thumb C8) 5 Normal Adduction 5 Normal Abduction (fingers T1) 4+ Good+ Hand Medical Secretary Teacher/Pinch Strength Hand Dominance Hand Dominance Right Hand Strength Right Comments 7kg, 5 lbs Left Comments 12 kg/22 lbs PT-OP-Q Treatments Start: 09/23/22 18:58 Freq: Status: Active Protocol: Document 10/08/22 11:21 LRN (Rec: 10/08/22 19:49 LRN [id number]) Self-Care/Home Management Treatment Education Patient Education Posture Other Education Discussed results of evaluation, goals, and plan of care (POC). Pt agreeable to goals and POC. Discussed and educated pt in how to not force straight her R middle finger if it locks. Educated pt in self massage to obtain release of the MCP/PIP jt. Discussed and educated pt in need to obtain finger splint to prevent flexion at MCP, PIP joints. Educated and discussed with pt best posturing for head/neck positioning at nighttime. Activities Self-Care/Home Management Activities Adjust pillows to prevent excessive SB of neck with sidelie sleeping. Wear splint on middle finger to prevent flexion of finger during the nighttime. PT-OP-T Assessment and Plan Start: 09/23/22 18:58 Freq: Status: Active Protocol: Document 10/08/22 11:21 LRN (Rec: 10/08/22 12:20 LRN [id number]) Physical Therapy Assessment Rehab Potential Rehabilitation Potential Good Evaluation Complexity Number of Personal Factors/Comorbidities 1-2 Number of Body Systems Impaired 4 or More Clinical Presentation at Evaluation Evolving Impairments Impairments Activity Tolerance,Pain, Posture,Sensation,Soft Tissue Mobility,Strength Goals Four Impairment R middle finger locking Short Term Goal (STG) Pt will wear a neutral positioning splint for R middle finger at nighttime to prevent locking. STG Duration 11/19/22 Motor Setter Goal (LTG) Pt will be educated in self care techniques to reduce trigger finger locking. LTG Duration 01/07/23 Three Impairment Decreased R hand strength Impairment Medical Secretary Teacher strength is: R hand: 7 kg or 5#, L hand 12 kg or 22#. Norm for 75+ women: R hand 42 .6#, L hand 37.6# Short Term Goal (STG) Pt will be independent in self care finger tendon glides. 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 LTG Duration 01/07/23 Two Impairment R thumb and R middle finger pain limiting function. Impairment R thenar eminence pain rated 4 /10, R middle finger pain rated 3/10. UE Quickdash score 38.63 (20- 39% impaired, score 20-39) Short Term Goal (STG) Pt will show knowledge in self care techniques to reduce pain and inflammation of the R hand. STG Duration 10/15/22 Chcf Goal (LTG) Decrease R thumb pain to 0-1/ 10 and eliminated locking of R middle finger with improved function per UE Quickdash score (27 or less). LTG Duration 01/07/23 One Impairment Lacks appropriates self care HEP. Short Term Goal (STG) Pt will be educated in proper body mechanics for ADLs, and proper sitting/standing/ sleeping posture. STG Duration 10/29/22 Chcf Goal (LTG) Pt will be independent in an effective self care HEP of neck, R shoulder, wrist & finger ROM & strengthening ex' s. LTG Duration 01/07/23 Assessment Summary Assessment Pt is an 87 year old female who presents with R forearm, wrist and thumb pain and neurological changes (numbness ) on waking in the morning and pain with use of the hand for slicing food, and gripping. The pt's pain appears to involve the R radial nerve, with neural tension present in the ulnar nerve. DTR is absent for R brachialradialis. She has weakness of the R wrist flexors (C7) and thumb/R middle finger for flexion (C8 ), Extension (C8) and AB (T1), and AD. The pt also indicates with sleeping she is not aware of her head/neck positioning; therefore cervical involvement is possible, but further assessment is needed. 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 Her R middle finger shows signs of trigger finger; therefore if improvement is not seen in a couple of weeks the pt should consider an orthopedic hand specialist consult. The pt will benefit from skilled physical therapy to work towards achieving the above stated goals. Physical Therapy Plan Frequency and Duration Frequency of Treatment 2x/Week Plan of Care Start Date 10/08/22 Plan of Care End Date 01/07/23 Therapeutic Interventions Therapeutic Interventions Home Exercise Program,Joint Mobilizations,Manual Therapy, Patient/Caregiver Education, Self-Care/Home Management,Soft Tissue Mobilization,Taping, Therapeutic Activities, Therapeutic Exercises Modalities Cold Pack/Ice Massage,Hot Packs Next Visit Focus/Plan Next Note Type Treatment Note Next Visit Plan Assess response to nighttime positioning education. Palp over A1 Pully for rubbing or clicking with middle finger ext. Assess neck (ROM/special tests ) for cervical involvement of hand pain, check triceps DTRs, assess R carpal mobility. Assess shoulder ROM/strength if needed and start radial n glides. Modalities: Contrast bath Hot /cold treatment with education for self care program, splinting. STM: R neck, brachium, forearm , thumb & R middle finger. Manual: Cervical gentle traction Ex: UE neural glides (radial, ulnar), neck/shoulder elbow, wrist stretch. ?General conditioning.
--- NOTE | 2022-10-11 17:33 | PT.OTN ---
Current Diagnoses Primary osteoarthritis, right hand (10/11/22) Physical Therapy Treatment Note PT-OP-A Visit Information Start: 09/23/22 18:58 Freq: Status: Active Protocol: Document 10/11/22 13:03 LRN (Rec: 10/11/22 13:50 LRN [id number]) Out-Patient Physical Therapy Visit Information Visit Information Visit Type Treatment Note Visit Start Time 13:04 Visit Stop Time 13:46 Total Visit Minutes 42 Visit Number 2 Evaluation Information Evaluation Date 10/08/22 Precautions Precautions Controlled HBP, arthritis. PT-OP-B Current Condition Start: 09/23/22 18:58 Freq: Status: Active Protocol: Document 10/08/22 11:21 LRN (Rec: 10/08/22 12:20 LRN [id number]) Current Condition History of Current Condition Onset Date 07/04/2021 Current Complaints Pain in R thumb, thenar ms & R middle PIP jt gets stuck in flexion. History of Current Condition Insidious onset of R hand dysfunction. 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 Sometimes sleeping, there is numbness in the R forearm medially and pain. Prior Treatments and Tests No treatments or testing. Future Testing and Treatments Planned No Developmental History Developmental History A few years ago fell foward onto her face and tried to catch herself with her hands. Hurt her R knee, but doesn't recall hurting her hand. 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 Personal Factors Other Personal Factors That May Effect arthritis, fall history. Therapy/Recovery PT-OP-C Subjective Start: 09/23/22 18:58 Freq: Status: Active Protocol: Document 10/11/22 13:03 LRN (Rec: 10/11/22 13:50 LRN [id number]) OP-PT Subjective Patient Comments Patient Comments States that she changed the way she was sleeping and no longer has been waking with tingling in the hands since her last visit. R thumb pain rated 5/10. PT-OP-H Neuro Start: 09/23/22 18:58 Freq: Status: Active Protocol: Document 10/08/22 11:21 LRN (Rec: 10/08/22 12:20 LRN [id number]) Sensation Evaluation Gross Sensation Gross Sensation Right UE Impaired Sensation Description Numbness Comments Summary Comments Waking in the morning pt has numbness/tingling in the R anterior forearm and hand. Deep Tendon Reflex & Clonus Assessment Deep Tendon Reflex Right Bicep Deep Tendon Reflex 1+ Diminished Left Bicep Deep Tendon Reflex 2+ Normal Right Brachioradialis Deep Tendon Reflex 0 Absent Left Brachioradialis Deep Tendon Reflex 1+ Diminished PT-OP-J Posture/Palpation/Skin Start: 09/23/22 18:58 Freq: Status: Active Protocol: Document 10/08/22 11:21 LRN (Rec: 10/08/22 12:20 LRN [id number]) Posture Evaluation Position Standing Head/C-Spine Posture Forward Head T-Spine Posture Flattened Shoulder Posture (R) Elevated Scapula Posture (R) Elevated Arm Posture (L) Internally Rotated,(R) Internally Rotated Comments Posture Comments Dowagers hump Palpation Assessment Location R thenar eminence Palpation Location Thenar eminence Palpation Findings Tenderness R forearm Palpation Location Medial to brachioradialis. Palpation Findings Tenderness PT-OP-K Range of Motion Start: 09/23/22 18:58 Freq: Status: Active Protocol: Document 10/08/22 11:21 LRN (Rec: 10/08/22 12:20 LRN [id number]) Wrist Goniometric Range of Motion Wrist Right Wrist ROM WFL No Flexion Active (degrees) 40 Extension Active (degrees) 45 Left Wrist ROM WFL Yes Flexion Active (degrees) 65 Extension Active (degrees) 50 ROM Limitations Comments R wrist ext w/elbow flexed is 45 deg's (L is 50 deg's) R wrist ext w/elbow extended is 60 deg's (L is 55 deg's) PT-OP-L Special Tests Start: 09/23/22 18:58 Freq: Status: Active Protocol: Document 10/08/22 11:21 LRN (Rec: 10/08/22 12:20 LRN [id number]) Special Tests Wrist/Hand Special Tests Phalen's Test Test Results - bilaterally CMC Load & Grind Test Results + R thumb Comments Indicative of CMC arthritis. Enma's Test Results - R wrist Comments Negative for DeQueveins Neural Special Tests- Upper Body Median Nerve Tension Test Results - RUE Comments Not formally tested. Ulnar Nerve Tension Test Results + RUE Radial Nerve Tension Test Results + RUE PT-OP-M Strength Start: 09/23/22 18:58 Freq: Status: Active Protocol: Document 10/08/22 11:21 LRN (Rec: 10/08/22 12:20 LRN [id number]) Wrist Strength Wrist Manual Muscle Testing Right Flexion (C7) 4- Good- Extension (C6) 5 Normal Ulnar Deviation 5 Normal Radial Deviation 5 Normal Comments Pain in thenar eminence with MMT of flexion Left Flexion (C7) 5 Normal Extension (C6) 5 Normal Ulnar Deviation 5 Normal Radial Deviation 5 Normal Finger/Thumb Strength Finger Manual Muscle Testing Right Third Flexion (fingers C8) 4+ Good+ Extension (thumb C8) 3 Fair Adduction 3 Fair Abduction (fingers T1) 3 Fair Left Third Flexion (fingers C8) 5 Normal Extension (thumb C8) 5 Normal Adduction 5 Normal Abduction (fingers T1) 5 Normal Right Thumb Flexion (fingers C8) 3 Fair Extension (thumb C8) 5 Normal Adduction 5 Normal Abduction (fingers T1) 4+ Good+ Left Thumb Flexion (fingers C8) 5 Normal Extension (thumb C8) 5 Normal Adduction 5 Normal Abduction (fingers T1) 4+ Good+ Hand Ingredient Mixer/Pinch Strength Hand Dominance Hand Dominance Right Hand Strength Right Comments 7kg, 5 lbs Left Comments 12 kg/22 lbs PT-OP-Q Treatments Start: 09/23/22 18:58 Freq: Status: Active Protocol: Document 10/11/22 13:03 LRN (Rec: 10/11/22 13:50 LRN [id number]) Therapeutic Exercises Supine Exercises Neck Elongation Supine Exercise Name Neck Elongation Reps/Minutes 8' Ulnar n. glide Supine Exercise Name Slider>tensioner>slider Side bilateral Reps/Minutes 5x each Sitting Exercises Neck Elongation Sitting Exercise Name Neck Elongation Reps/Minutes 6' Posture training Sitting Exercise Name Postural training Reps/Minutes 2' Comments Cuing in low back, neck chin tuck Manual Therapy Treatment Soft Tissue Mobilization R brachium Body Location R brachium Mobilization Type Strumming Body Position Supine Comments MH/CP at neck, alternating R pecs Body Location Pec stretches Mobilization Type Sustained Pressure Comments MH/CP at neck, alternating Manual Traction Cervical Details Axial and C6-C7 traction Body Position Supine Reps/Duration 19' Comments Varying angle traction to eliminate variable onset of R thumb, wrist, forearm pain. PT-OP-T Assessment and Plan Start: 09/23/22 18:58 Freq: Status: Active Protocol: Document 10/11/22 13:03 LRN (Rec: 10/11/22 13:50 LRN [id number]) Physical Therapy Assessment Goals Four Impairment R middle finger locking Short Term Goal (STG) Pt will wear a neutral positioning splint for R middle finger at nighttime to prevent locking. STG Duration 11/19/22 General Manager In Training Goal (LTG) Pt will be educated in self care techniques to reduce trigger finger locking. LTG Duration 01/07/23 Three Impairment Decreased R hand strength Impairment Ingredient Mixer strength is: R hand: 7 kg or 5#, L hand 12 kg or 22#. Norm for 75+ women: R hand 42 .6#, L hand 37.6# Short Term Goal (STG) Pt will be independent in self care finger tendon glides. STG Duration 11/19/22 Fpc Goal (LTG) Improve hand strength with modification to knitting inspector handles to surfaces as need to cook without causing locking of the R middle finger in flexion. LTG Duration 01/07/23 Two Impairment R thumb and R middle finger pain limiting function. Impairment R thenar eminence pain rated 4 /10, R middle finger pain rated 3/10. UE Quickdash score 38.63 (20- 39% impaired, score 20-39) Short Term Goal (STG) Pt will show knowledge in self care techniques to reduce pain and inflammation of the R hand. STG Duration 10/15/22 Fpc Goal (LTG) Decrease R thumb pain to 0-1/ 10 and eliminated locking of R middle finger with improved function per UE Quickdash score (27 or less). LTG Duration 01/07/23 One Impairment Lacks appropriates self care HEP. Short Term Goal (STG) Pt will be educated in proper body mechanics for ADLs, and proper sitting/standing/ sleeping posture. STG Duration 10/29/22 Fpc Goal (LTG) Pt will be independent in an effective self care HEP of neck, R shoulder, wrist & finger ROM & strengthening ex' s. LTG Duration 07/07/23 Assessment Summary Assessment Pt has not gotten night splint for R middle finger. + response to nighttime positioning education, with no longer having symptoms in hand on waking. + response to gentle C.tx with resolution of R thumb pain and pain now centralizing with pain c/o now in forearm and medial brachium. Pt noting poor posturing in sitting in recliner at nighttime and onset of thumb pain at that time; therefore expect pt to improve with changes in posture. Physical Therapy Plan Frequency and Duration Frequency of Treatment 2x/Week Plan of Care Start Date 10/08/22 Plan of Care End Date 01/07/23 Next Visit Focus/Plan Next Note Type Treatment Note Next Visit Plan Assess if pt obtained splint for R middle finger. Educate pt in contrast bath for UE fro pain/inflammation & proper body mechanics for ADLs, and proper sitting/ standing/sleeping posture. Palp over A1 Pully for rubbing or clicking with middle finger ext. Assess neck (ROM/special tests ) for cervical involvement of hand pain, check triceps DTRs, assess R carpal mobility. Assess shoulder ROM/strength if needed and start radial n glides. Modalities: Contrast bath Hot /cold treatment with education for self care program, splinting. STM: R neck, brachium, forearm , thumb & R middle finger. Manual: Cervical gentle traction Ex: UE neural glides (radial, ulnar), neck/shoulder elbow, wrist stretch. ?General conditioning.
--- NOTE | 2022-10-16 12:24 | PT.OTN ---
Current Diagnoses Primary osteoarthritis, right hand (10/15/22) Physical Therapy Treatment Note PT-OP-A Visit Information Start: 09/23/22 18:58 Freq: Status: Active Protocol: Document 10/15/22 09:06 LRN (Rec: 10/15/22 09:52 LRN [id number]) Out-Patient Physical Therapy Visit Information Visit Information Visit Type Treatment Note Visit Start Time 09:06 Visit Stop Time 09:50 Total Visit Minutes 44 Visit Number 2 Evaluation Information Evaluation Date 10/08/22 Precautions Precautions Controlled HBP, arthritis. PT-OP-B Current Condition Start: 09/23/22 18:58 Freq: Status: Active Protocol: Document 10/08/22 11:21 LRN (Rec: 10/08/22 12:20 LRN [id number]) Current Condition History of Current Condition Onset Date 07/04/2021 Current Complaints Pain in R thumb, thenar ms & R middle PIP jt gets stuck in flexion. History of Current Condition Insidious onset of R hand dysfunction. 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 Sometimes sleeping, there is numbness in the R forearm medially and pain. Prior Treatments and Tests No treatments or testing. Future Testing and Treatments Planned No Developmental History Developmental History A few years ago fell foward onto her face and tried to catch herself with her hands. Hurt her R knee, but doesn't recall hurting her hand. 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 Personal Factors Other Personal Factors That May Effect arthritis, fall history. Therapy/Recovery PT-OP-C Subjective Start: 09/23/22 18:58 Freq: Status: Active Protocol: Document 10/15/22 09:06 LRN (Rec: 10/15/22 09:52 LRN [id number]) OP-PT Subjective Patient Comments Patient Comments Bad night last night with R arm and all fingers numb, kept waking her up at night; also R medial knee was hurting. That day had been bending over , using a claw for her pots on her deck (turning over the dirt), up until then had been sleeping good without the numbness and hadn't had pain in the arm. PT-OP-H Neuro Start: 09/23/22 18:58 Freq: Status: Active Protocol: Document 10/08/22 11:21 LRN (Rec: 10/08/22 12:20 LRN [id number]) Sensation Evaluation Gross Sensation Gross Sensation Right UE Impaired Sensation Description Numbness Comments Summary Comments Waking in the morning pt has numbness/tingling in the R anterior forearm and hand. Deep Tendon Reflex & Clonus Assessment Deep Tendon Reflex Right Bicep Deep Tendon Reflex 1+ Diminished Left Bicep Deep Tendon Reflex 2+ Normal Right Brachioradialis Deep Tendon Reflex 0 Absent Left Brachioradialis Deep Tendon Reflex 1+ Diminished PT-OP-J Posture/Palpation/Skin Start: 09/23/22 18:58 Freq: Status: Active Protocol: Document 10/08/22 11:21 LRN (Rec: 10/08/22 12:20 LRN [id number]) Posture Evaluation Position Standing Head/C-Spine Posture Forward Head T-Spine Posture Flattened Shoulder Posture (R) Elevated Scapula Posture (R) Elevated Arm Posture (L) Internally Rotated,(R) Internally Rotated Comments Posture Comments Dowagers hump Palpation Assessment Location R thenar eminence Palpation Location Thenar eminence Palpation Findings Tenderness R forearm Palpation Location Medial to brachioradialis. Palpation Findings Tenderness PT-OP-K Range of Motion Start: 09/23/22 18:58 Freq: Status: Active Protocol: Document 10/15/22 09:06 LRN (Rec: 10/15/22 09:52 LRN [id number]) Cervical Spine Range of Motion Cervical Spine Active Degrees Testing Position Sitting Flexion 31 Extension 35 Rotation Left 42 Rotation Right 45 Lateral Flexion Left 25 Lateral Flexion Right 29 PT-OP-L Special Tests Start: 09/23/22 18:58 Freq: Status: Active Protocol: Document 10/08/22 11:21 LRN (Rec: 10/08/22 12:20 LRN [id number]) Special Tests Wrist/Hand Special Tests Phalen's Test Test Results - bilaterally CMC Load & Grind Test Results + R thumb Comments Indicative of CMC arthritis. Enma's Test Results - R wrist Comments Negative for DeQueveins Neural Special Tests- Upper Body Median Nerve Tension Test Results - RUE Comments Not formally tested. Ulnar Nerve Tension Test Results + RUE Radial Nerve Tension Test Results + RUE PT-OP-M Strength Start: 09/23/22 18:58 Freq: Status: Active Protocol: Document 10/08/22 11:21 LRN (Rec: 10/08/22 12:20 LR [id number]) Wrist Strength Wrist Manual Muscle Testing Right Flexion (C7) 4- Good- Extension (C6) 5 Normal Ulnar Deviation 5 Normal Radial Deviation 5 Normal Comments Pain in thenar eminence with MMT of flexion Left Flexion (C7) 5 Normal Extension (C6) 5 Normal Ulnar Deviation 5 Normal Radial Deviation 5 Normal Finger/Thumb Strength Finger Manual Muscle Testing Right Third Flexion (fingers C8) 4+ Good+ Extension (thumb C8) 3 Fair Adduction 3 Fair Abduction (fingers T1) 3 Fair Left Third Flexion (fingers C8) 5 Normal Extension (thumb C8) 5 Normal Adduction 5 Normal Abduction (fingers T1) 5 Normal Right Thumb Flexion (fingers C8) 3 Fair Extension (thumb C8) 5 Normal Adduction 5 Normal Abduction (fingers T1) 4+ Good+ Left Thumb Flexion (fingers C8) 5 Normal Extension (thumb C8) 5 Normal Adduction 5 Normal Abduction (fingers T1) 4+ Good+ Hand Engine Test Cell Technician/Pinch Strength Hand Dominance Hand Dominance Right Hand Strength Right Comments 7kg, 5 lbs Left Comments 12 kg/22 lbs PT-OP-Q Treatments Start: 09/23/22 18:58 Freq: Status: Active Protocol: Document 10/15/22 09:06 LRN (Rec: 10/15/22 09:52 [facility] [id number]) Therapeutic Exercises Supine Exercises Neck Elongation Supine Exercise Name Neck Elongation Reps/Minutes 8' Ulnar n. glide Supine Exercise Name Slider>tensioner>slider: butterfly & wrist pronation. Side bilateral Equipment Used MH to neck/back, pillow under hips and bolster for legs Reps/Minutes 5x each Comments Cuing for arm positioning Sitting Exercises Neck Rot Sitting Exercise Name Actvie Neck Rot Side bilateral Reps/Minutes 15x each Trunk Rot Sitting Exercise Name Active Thoracic Rot: L>C>R Side bilateral Reps/Minutes 15x each Standing Exercises Posture training Standing Exercise Name Postural awareness training, back against wall Reps/Minutes 12' Manual Therapy Treatment Soft Tissue Mobilization Cervical Body Location Neck Mobilization Type Other Body Position Hooklying Comments With MH to neck: Side glide stretch to neck R brachium Body Location R brachium Mobilization Type Strumming Body Position Supine Comments MH/CP at neck, alternating R pecs Body Location Pec stretches, f/b scapular pinches Mobilization Type Sustained Pressure Comments MH at neck, alternating Manual Traction Cervical Details Gentle Axial and C6-C7 traction Body Position Supine Reps/Duration 3' Comments Varying angle traction to eliminate variable onset of R thumb, wrist, forearm pain. Self-Care/Home Management Treatment Education Patient Education Pain Management Other Education Educated pt in use hot/cold technique as done for contrast bath treatment. Activities Self-Care/Home Management Activities HO for contrast bath hot/cold treatments. PT-OP-T Assessment and Plan Start: 09/23/22 18:58 Freq: Status: Active Protocol: Document 10/15/22 09:06 LRN (Rec: 10/15/22 09:52 LRN [id number]) Physical Therapy Assessment Goals Four Impairment R middle finger locking Short Term Goal (STG) Pt will wear a neutral positioning splint for R middle finger at nighttime to prevent locking. STG Duration 11/19/22 Pool Hand Goal (LTG) Pt will be educated in self care techniques to reduce trigger finger locking. 10/15/22: Pt educated in self massage to R middle finger joints to slowly obtain relief of locked finger. LTG Duration 01/07/23 (10/15/22 MET GOAL) Three Impairment Decreased R hand strength Impairment Engine Test Cell Technician strength is: R hand: 7 kg or 5#, L hand 12 kg or 22#. Norm for 75+ women: R hand 42 .6#, L hand 37.6# Short Term Goal (STG) Pt will be independent in self care finger tendon glides. STG Duration 11/19/22 Prison Goal (LTG) Improve hand strength with modification to embossing tool setter handles to surfaces as need to cook without causing locking of the R middle finger in flexion. LTG Duration 01/07/23 Two Impairment R thumb and R middle finger pain limiting function. Impairment R thenar eminence pain rated 4 /10, R middle finger pain rated 3/10. UE Quickdash score 38.63 (20- 39% impaired, score 20-39) Short Term Goal (STG) Pt will show knowledge in self care techniques to reduce pain and inflammation of the R hand. 10/15/22: Educated pt in contrast bath technique with handout issued. STG Duration 10/15/22 (10/15/22: MET GOAL ) Prison Goal (LTG) Decrease R thumb pain to 0-1/ 10 and eliminated locking of R middle finger with improved function per UE Quickdash score (27 or less). LTG Duration 01/07/23 One Impairment Lacks appropriates self care HEP. Short Term Goal (STG) Pt will be educated in proper body mechanics for ADLs, and proper sitting/standing/ sleeping posture. STG Duration 10/29/22 Prison Goal (LTG) Pt will be independent in an effective self care HEP of neck, R shoulder, wrist & finger ROM & strengthening ex' s. LTG Duration 01/07/23 Assessment Summary Assessment + response to MH/Ice contrast during STM of C/S and manual c . tx, with some relief of R UE pain. Pt appears to have onset of radicular pain down the R UE, probably due to poor head/neck/shoulder posturing during gardening. Locking onset of the R middle finger in flexion has decreased to occasional. With Ulnar n. stretching in supine, LUE had forearm tension, RUE had not pain/stretch noted. C. AROM did not elicit UE neuro symptoms, but neck mobility is restricted with all motions that is somewhat appropriate for the pt's age. Physical Therapy Plan Frequency and Duration Frequency of Treatment 2x/Week Plan of Care Start Date 10/08/22 Plan of Care End Date 01/07/23 Next Visit Focus/Plan Next Note Type Treatment Note Next Visit Plan Review contrast bath to be used with R hand as well as neck/shoulder. Assess if pt obtained splint for R middle finger. Review pt self massage to R middle finger joints. Educate pt in proper body mechanics for ADLs, and proper sitting/standing/sleeping posture. Palp over A1 Pully for rubbing or clicking on R middle finger active extension. Assess neck (special tests) for cervical involvement of hand pain, check triceps DTRs, assess R carpal mobility. Assess shoulder ROM/strength if needed and start radial n glides. Modalities: Contrast bath Hot /cold treatment, splinting R middle finger. STM: R neck, brachium, forearm , thumb & R middle finger. Manual: Cervical gentle traction Ex: UE neural glides (add radial if +), neck/shoulder elbow, wrist stretch. ? General conditioning.
--- NOTE | 2022-10-22 12:17 | PT.OTN ---
Current Diagnoses Primary osteoarthritis, right hand (10/22/22) Physical Therapy Treatment Note PT-OP-A Visit Information Start: 09/23/22 18:58 Freq: Status: Active Protocol: Document 10/22/22 11:23 LRN (Rec: 10/22/22 12:16 LRN [id number]) Out-Patient Physical Therapy Visit Information Visit Information Visit Type Treatment Note Visit Start Time 11:23 Visit Stop Time 12:01 Total Visit Minutes 38 Visit Number 4 Evaluation Information Evaluation Date 10/08/22 Precautions Precautions Controlled HBP, arthritis. PT-OP-B Current Condition Start: 09/23/22 18:58 Freq: Status: Active Protocol: Document 10/08/22 11:21 LRN (Rec: 10/08/22 12:20 LRN [id number]) Current Condition History of Current Condition Onset Date 07/04/2021 Current Complaints Pain in R thumb, thenar ms & R middle PIP jt gets stuck in flexion. History of Current Condition Insidious onset of R hand dysfunction. 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 Sometimes sleeping, there is numbness in the R forearm medially and pain. Prior Treatments and Tests No treatments or testing. Future Testing and Treatments Planned No Developmental History Developmental History A few years ago fell foward onto her face and tried to catch herself with her hands. Hurt her R knee, but doesn't recall hurting her hand. 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 Personal Factors Other Personal Factors That May Effect arthritis, fall history. Therapy/Recovery PT-OP-C Subjective Start: 09/23/22 18:58 Freq: Status: Active Protocol: Document 10/22/22 11:23 LRN (Rec: 10/22/22 12:16 LRN [id number]) OP-PT Subjective Patient Comments Patient Comments Did hot/cold at home, but not change. PT-OP-H Neuro Start: 09/23/22 18:58 Freq: Status: Active Protocol: Document 10/08/22 11:21 LRN (Rec: 10/08/22 12:20 LRN [id number]) Sensation Evaluation Gross Sensation Gross Sensation Right UE Impaired Sensation Description Numbness Comments Summary Comments Waking in the morning pt has numbness/tingling in the R anterior forearm and hand. Deep Tendon Reflex & Clonus Assessment Deep Tendon Reflex Right Bicep Deep Tendon Reflex 1+ Diminished Left Bicep Deep Tendon Reflex 2+ Normal Right Brachioradialis Deep Tendon Reflex 0 Absent Left Brachioradialis Deep Tendon Reflex 1+ Diminished PT-OP-J Posture/Palpation/Skin Start: 09/23/22 18:58 Freq: Status: Active Protocol: Document 10/08/22 11:21 LRN (Rec: 10/08/22 12:20 LRN [id number]) Posture Evaluation Position Standing Head/C-Spine Posture Forward Head T-Spine Posture Flattened Shoulder Posture (R) Elevated Scapula Posture (R) Elevated Arm Posture (L) Internally Rotated,(R) Internally Rotated Comments Posture Comments Dowagers hump Palpation Assessment Location R thenar eminence Palpation Location Thenar eminence Palpation Findings Tenderness R forearm Palpation Location Medial to brachioradialis. Palpation Findings Tenderness PT-OP-K Range of Motion Start: 09/23/22 18:58 Freq: Status: Active Protocol: Document 10/15/22 09:06 LRN (Rec: 10/15/22 09:52 LRN [id number]) Cervical Spine Range of Motion Cervical Spine Active Degrees Testing Position Sitting Flexion 31 Extension 35 Rotation Left 42 Rotation Right 45 Lateral Flexion Left 25 Lateral Flexion Right 29 PT-OP-L Special Tests Start: 09/23/22 18:58 Freq: Status: Active Protocol: Document 10/08/22 11:21 LRN (Rec: 10/08/22 12:20 LRN [id number]) Special Tests Wrist/Hand Special Tests Phalen's Test Test Results - bilaterally CMC Load & Grind Test Results + R thumb Comments Indicative of CMC arthritis. Enma's Test Results - R wrist Comments Negative for DeQueveins Neural Special Tests- Upper Body Median Nerve Tension Test Results - RUE Comments Not formally tested. Ulnar Nerve Tension Test Results + RUE Radial Nerve Tension Test Results + RUE PT-OP-M Strength Start: 09/23/22 18:58 Freq: Status: Active Protocol: Document 10/08/22 11:21 LRN (Rec: 10/08/22 12:20 LRN [id number]) Wrist Strength Wrist Manual Muscle Testing Right Flexion (C7) 4- Good- Extension (C6) 5 Normal Ulnar Deviation 5 Normal Radial Deviation 5 Normal Comments Pain in thenar eminence with MMT of flexion Left Flexion (C7) 5 Normal Extension (C6) 5 Normal Ulnar Deviation 5 Normal Radial Deviation 5 Normal Finger/Thumb Strength Finger Manual Muscle Testing Right Third Flexion (fingers C8) 4+ Good+ Extension (thumb C8) 3 Fair Adduction 3 Fair Abduction (fingers T1) 3 Fair Left Third Flexion (fingers C8) 5 Normal Extension (thumb C8) 5 Normal Adduction 5 Normal Abduction (fingers T1) 5 Normal Right Thumb Flexion (fingers C8) 3 Fair Extension (thumb C8) 5 Normal Adduction 5 Normal Abduction (fingers T1) 4+ Good+ Left Thumb Flexion (fingers C8) 5 Normal Extension (thumb C8) 5 Normal Adduction 5 Normal Abduction (fingers T1) 4+ Good+ Hand Pharmacy Buyer/Pinch Strength Hand Dominance Hand Dominance Right Hand Strength Right Comments 7kg, 5 lbs Left Comments 12 kg/22 lbs PT-OP-Q Treatments Start: 09/23/22 18:58 Freq: Status: Active Protocol: Document 10/22/22 11:23 LRN (Rec: 10/22/22 12:16 LRN [id number]) Manual Therapy Treatment Soft Tissue Mobilization R forearm Body Location R forearm Mobilization Type Strumming Intensity/Depth Moderate Body Position Supine T/S Body Location Upper T/S Paraspinals Mobilization Type Strumming Intensity/Depth Moderate Body Position Supine R UT Body Location R UT mid & distal release Mobilization Type Strumming,Sustained Pressure, Trigger Point Release Intensity/Depth Moderate Body Position Prone Comments Reduction of R UE discomfort. Cervical Body Location C/S paraspinals Mobilization Type Other Body Position Hooklying Comments With MH to neck: Side glide stretch to neck R brachium Body Location R brachium Mobilization Type Strumming Body Position Supine Comments MH/CP at neck, alternating Manual Traction Cervical Details Gentle Axial and C6-C7 traction Body Position Supine Reps/Duration 3' Comments Varying angle traction to eliminate variable onset of R thumb pain. PT-OP-T Assessment and Plan Start: 09/23/22 18:58 Freq: Status: Active Protocol: Document 10/22/22 11:23 LRN (Rec: 10/22/22 12:16 LRN [id number]) Physical Therapy Assessment Goals Four Impairment R middle finger locking Short Term Goal (STG) Pt will wear a neutral positioning splint for R middle finger at nighttime to prevent locking. STG Duration 11/19/22 Cavalry Officer Goal (LTG) Pt will be educated in self care techniques to reduce trigger finger locking. 10/15/22: Pt educated in self massage to R middle finger joints to slowly obtain relief of locked finger. LTG Duration 01/07/23 (10/15/22 MET GOAL) Three Impairment Decreased R hand strength Impairment Pharmacy Buyer strength is: R hand: 7 kg or 5#, L hand 12 kg or 22#. Norm for 75+ women: R hand 42 .6#, L hand 37.6# Short Term Goal (STG) Pt will be independent in self care finger tendon glides. 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 LTG Duration 01/07/23 Two Impairment R thumb and R middle finger pain limiting function. Impairment R thenar eminence pain rated 4 /10, R middle finger pain rated 3/10. UE Quickdash score 38.63 (20- 39% impaired, score 20-39) Short Term Goal (STG) Pt will show knowledge in self care techniques to reduce pain and inflammation of the R hand. 10/15/22: Educated pt in contrast bath technique with handout issued. STG Duration 10/15/22 (10/15/22: MET GOAL ) Cavalry Officer Goal (LTG) Decrease R thumb pain to 0-1/ 10 and eliminated locking of R middle finger with improved function per UE Quickdash score (27 or less). LTG Duration 01/07/23 One Impairment Lacks appropriates self care HEP. Short Term Goal (STG) Pt will be educated in proper body mechanics for ADLs, and proper sitting/standing/ sleeping posture. STG Duration 10/29/22 Prison Goal (LTG) Pt will be independent in an effective self care HEP of neck, R shoulder, wrist & finger ROM & strengthening ex' s. LTG Duration 01/07/23 Assessment Summary Assessment Cervical and soft tissue (R UT ) involvement of R hand/UE pain. Discomfort in R thumb decreased 50% with gentle manual C. tx at C6-C7, but initiated brachial and forearm achiness. R UE achiness relieved with prone STM release to R UT. Pt has not obtained R middle finger splint. Pt doing some hot/ cold at home, noting no significant improvement. Physical Therapy Plan Frequency and Duration Frequency of Treatment 2x/Week Plan of Care Start Date 10/08/22 Plan of Care End Date 01/07/23 Next Visit Focus/Plan Next Note Type Treatment Note Next Visit Plan Review and assess pt's compliance to best head/neck posturing for daily activities . Assess if pt obtained splint for R middle finger. Review pt self massage to R middle finger joints. Educate pt in proper body mechanics for ADLs, and proper sitting/standing/sleeping posture. Palp over A1 Pully for rubbing or clicking on R middle finger active extension. Assess check triceps DTRs, assess R carpal mobility. Assess shoulder ROM/strength if needed and start radial n glides. Modalities: Contrast bath Hot /cold treatment, splinting R middle finger. STM (R neck, brachium, forearm , thumb & R middle finger). Manual: Gentle manual cervical traction due to pt age. Ex: UE neural glides (add radial if +), neck/shoulder elbow, wrist stretch. ? General conditioning.
--- NOTE | 2022-10-26 17:25 | PT.OTN ---
Current Diagnoses Primary osteoarthritis, right hand (10/26/22) Physical Therapy Treatment Note PT-OP-A Visit Information Start: 09/23/22 18:58 Freq: Status: Active Protocol: Document 10/26/22 10:36 LRN (Rec: 10/26/22 11:19 LRN [id number]) Out-Patient Physical Therapy Visit Information Visit Information Visit Type Treatment Note Visit Start Time 10:36 Visit Stop Time 11:14 Total Visit Minutes 38 Visit Number 5 Evaluation Information Evaluation Date 10/08/22 Precautions Precautions Controlled HBP, arthritis. PT-OP-B Current Condition Start: 09/23/22 18:58 Freq: Status: Active Protocol: Document 10/08/22 11:21 LRN (Rec: 10/08/22 12:20 LRN [id number]) Current Condition History of Current Condition Onset Date 07/04/2021 Current Complaints Pain in R thumb, thenar ms & R middle PIP jt gets stuck in flexion. History of Current Condition Insidious onset of R hand dysfunction. 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 Sometimes sleeping, there is numbness in the R forearm medially and pain. Prior Treatments and Tests No treatments or testing. Future Testing and Treatments Planned No Developmental History Developmental History A few years ago fell foward onto her face and tried to catch herself with her hands. Hurt her R knee, but doesn't recall hurting her hand. 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 Personal Factors Other Personal Factors That May Effect arthritis, fall history. Therapy/Recovery PT-OP-C Subjective Start: 09/23/22 18:58 Freq: Status: Active Protocol: Document 10/26/22 10:36 LRN (Rec: 10/26/22 11:19 LRN [id number]) OP-PT Subjective Patient Comments Patient Comments States the R forearm pain has been bad and it comes and goes . Pain rated 6-7/10. PT-OP-H Neuro Start: 09/23/22 18:58 Freq: Status: Active Protocol: Document 10/08/22 11:21 LRN (Rec: 10/08/22 12:20 LRN [id number]) Sensation Evaluation Gross Sensation Gross Sensation Right UE Impaired Sensation Description Numbness Comments Summary Comments Waking in the morning pt has numbness/tingling in the R anterior forearm and hand. Deep Tendon Reflex & Clonus Assessment Deep Tendon Reflex Right Bicep Deep Tendon Reflex 1+ Diminished Left Bicep Deep Tendon Reflex 2+ Normal Right Brachioradialis Deep Tendon Reflex 0 Absent Left Brachioradialis Deep Tendon Reflex 1+ Diminished PT-OP-J Posture/Palpation/Skin Start: 09/23/22 18:58 Freq: Status: Active Protocol: Document 10/08/22 11:21 LRN (Rec: 10/08/22 12:20 LRN [id number]) Posture Evaluation Position Standing Head/C-Spine Posture Forward Head T-Spine Posture Flattened Shoulder Posture (R) Elevated Scapula Posture (R) Elevated Arm Posture (L) Internally Rotated,(R) Internally Rotated Comments Posture Comments Dowagers hump Palpation Assessment Location R thenar eminence Palpation Location Thenar eminence Palpation Findings Tenderness R forearm Palpation Location Medial to brachioradialis. Palpation Findings Tenderness PT-OP-K Range of Motion Start: 09/23/22 18:58 Freq: Status: Active Protocol: Document 10/15/22 09:06 LRN (Rec: 10/15/22 09:52 LRN [id number]) Cervical Spine Range of Motion Cervical Spine Active Degrees Testing Position Sitting Flexion 31 Extension 35 Rotation Left 42 Rotation Right 45 Lateral Flexion Left 25 Lateral Flexion Right 29 PT-OP-L Special Tests Start: 09/23/22 18:58 Freq: Status: Active Protocol: Document 10/08/22 11:21 LRN (Rec: 10/08/22 12:20 LRN [id number]) Special Tests Wrist/Hand Special Tests Phalen's Test Test Results - bilaterally CMC Load & Grind Test Results + R thumb Comments Indicative of CMC arthritis. Enma's Test Results - R wrist Comments Negative for [place]veins Neural Special Tests- Upper Body Median Nerve Tension Test Results - RUE Comments Not formally tested. Ulnar Nerve Tension Test Results + RUE Radial Nerve Tension Test Results + RUE PT-OP-M Strength Start: 09/23/22 18:58 Freq: Status: Active Protocol: Document 10/08/22 11:21 LRN (Rec: 10/08/22 12:20 LRN [id number]) Wrist Strength Wrist Manual Muscle Testing Right Flexion (C7) 4- Good- Extension (C6) 5 Normal Ulnar Deviation 5 Normal Radial Deviation 5 Normal Comments Pain in thenar eminence with MMT of flexion Left Flexion (C7) 5 Normal Extension (C6) 5 Normal Ulnar Deviation 5 Normal Radial Deviation 5 Normal Finger/Thumb Strength Finger Manual Muscle Testing Right Third Flexion (fingers C8) 4+ Good+ Extension (thumb C8) 3 Fair Adduction 3 Fair Abduction (fingers T1) 3 Fair Left Third Flexion (fingers C8) 5 Normal Extension (thumb C8) 5 Normal Adduction 5 Normal Abduction (fingers T1) 5 Normal Right Thumb Flexion (fingers C8) 3 Fair Extension (thumb C8) 5 Normal Adduction 5 Normal Abduction (fingers T1) 4+ Good+ Left Thumb Flexion (fingers C8) 5 Normal Extension (thumb C8) 5 Normal Adduction 5 Normal Abduction (fingers T1) 4+ Good+ Hand Base Wad Operator Adjuster/Pinch Strength Hand Dominance Hand Dominance Right Hand Strength Right Comments 7kg, 5 lbs Left Comments 12 kg/22 lbs PT-OP-Q Treatments Start: 09/23/22 18:58 Freq: Status: Active Protocol: Document 10/26/22 10:36 LRN (Rec: 10/26/22 11:19 LRN [id number]) Therapeutic Exercises Supine Exercises Median n glide Supine Exercise Name Arm 80 deg's AB, sup, elbw full ext, wrist ext: head neutral, L SB, neutra Reps/Minutes 10x each R wrist flex/ext Supine Exercise Name Active R wrist flex/ext. Side right Reps/Minutes 10x 3 Elbow flex/ext Supine Exercise Name Active elbow flex/ext training in sup & pronation w/MWM Side right Reps/Minutes 10x 3 Sitting Exercises Neck Elongation Sitting Exercise Name Check Neck Elongation Reps/Minutes 1' Manual Therapy Treatment Soft Tissue Mobilization R forearm Body Location R forearm Mobilization Type Strumming Intensity/Depth Moderate Body Position Supine T/S Body Location C7-T2 paraspinals Mobilization Type Strumming,Sustained Pressure Intensity/Depth Moderate Body Position Supine R UT Body Location R UT mid & distal release with balancing at lat scap, post delt Mobilization Type Strumming,Sustained Pressure Intensity/Depth Moderate Body Position Prone Comments Reduction of R UE discomfort. Cervical Body Location R C/S paraspinals Mobilization Type Other Body Position Hooklying Comments With MH to R arm Manual Techniques MWM R elbow Ext Type MWM Body Location R Elbow Body Position Supine Reps/Duration 10x 2 Comments MWM: PA of Tib/FIb with Lateral glide on extension. PT-OP-T Assessment and Plan Start: 09/23/22 18:58 Freq: Status: Active Protocol: Document 10/26/22 10:36 LRN (Rec: 10/26/22 11:19 LRN [id number]) Physical Therapy Assessment Goals Four Impairment R middle finger locking Short Term Goal (STG) Pt will wear a neutral positioning splint for R middle finger at nighttime to prevent locking. STG Duration 11/19/22 Military Professional Goal (LTG) Pt will be educated in self care techniques to reduce trigger finger locking. 10/15/22: Pt educated in self massage to R middle finger joints to slowly obtain relief of locked finger. LTG Duration 01/07/23 (10/15/22 MET GOAL) Three Impairment Decreased R hand strength Impairment Base Wad Operator Adjuster strength is: R hand: 7 kg or 5#, L hand 12 kg or 22#. Norm for 75+ women: R hand 42 .6#, L hand 37.6# Short Term Goal (STG) Pt will be independent in self care finger tendon glides. 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 LTG Duration 01/07/23 Two Impairment R thumb and R middle finger pain limiting function. Impairment R thenar eminence pain rated 4 /10, R middle finger pain rated 3/10. UE Quickdash score 38.63 (20- 39% impaired, score 20-39) Short Term Goal (STG) Pt will show knowledge in self care techniques to reduce pain and inflammation of the R hand. 10/15/22: Educated pt in contrast bath technique with handout issued. STG Duration 10/15/22 (10/15/22: MET GOAL ) Military Professional Goal (LTG) Decrease R thumb pain to 0-1/ 10 and eliminated locking of R middle finger with improved function per UE Quickdash score (27 or less). LTG Duration 01/07/23 One Impairment Lacks appropriates self care HEP. Short Term Goal (STG) Pt will be educated in proper body mechanics for ADLs, and proper sitting/standing/ sleeping posture. STG Duration 10/29/22 Military Professional Goal (LTG) Pt will be independent in an effective self care HEP of neck, R shoulder, wrist & finger ROM & strengthening ex' s. LTG Duration 01/07/23 Progress Towards Goals Progress Comments Pain decreased at R elbow with treatment from 7/10 to 3/10. Assessment Summary Assessment Pt notes she has been trying to be more conscientious of her head/neck posturing, but in supine with neck elongation she appears to be doing neck flex vx deep cervical neck flexion. Today she only c/o of R elbow rated 7-10 and ending 2-3/10 when straightening the elbow. She had a + response to use of hot /cold to the elbow during supine C. AROM exercises. No sharp pain after treatment with elbow flexion/ext although pain still present. No pain with C. AROM with rot. No change in R elbow pain with gentle manual C.tx @ C6- C7; therefore doesn't appear to be cervical related. Physical Therapy Plan Frequency and Duration Frequency of Treatment 2x/Week Plan of Care Start Date 10/08/22 Plan of Care End Date 01/07/23 Next Visit Focus/Plan Next Note Type Treatment Note Next Visit Plan Assess if pt obtained splint for R middle finger. Next: Educate proper sitting/ standing/sleeping posture and add n. glide w/handouts. Educate pt in proper body mechanics for ADLs Review pt self massage to R middle finger joints. Palp over A1 Pully for rubbing or clicking on R middle finger active extension. Assess check triceps DTRs, assess R carpal mobility. Assess shoulder ROM/strength if needed and start radial n glides. Modalities: Contrast bath Hot /cold treatment, splinting R middle finger. STM (R neck, brachium, forearm , thumb & R middle finger). Manual: Gentle manual cervical traction due to pt age. Ex: UE neural glides (add radial if +), neck/shoulder elbow, wrist stretch. ? General conditioning.
--- NOTE | 2022-11-18 08:09 | PT.OPDS ---
Current Diagnoses Primary osteoarthritis, right hand (10/26/22) Visit Care Team Role Provider Type Humberto Rogers DO Family Provider Physician Primary Care Provider Specialty: Family Practice Address: [address] [place] [address], [id number] Email: [email or web address] Attending Provider Advanced Right Of Way Clearer Referring Provider Specialty: Medical Address: [address] [place] [address], [id number] Email: [email or web address] Visit Number Visit Number 5 Discharge Summary PT-OP-B Current Condition Start: 09/23/22 18:58 Freq: Status: Active Protocol: Document 10/08/22 11:21 LRN (Rec: 10/08/22 12:20 LRN [id number]) Current Condition History of Current Condition Onset Date 07/04/2021 Current Complaints Pain in R thumb, thenar ms & R middle PIP jt gets stuck in flexion. History of Current Condition Insidious onset of R hand dysfunction. 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 Sometimes sleeping, there is numbness in the R forearm medially and pain. Prior Treatments and Tests No treatments or testing. Future Testing and Treatments Planned No Developmental History Developmental History A few years ago fell foward onto her face and tried to catch herself with her hands. Hurt her R knee, but doesn't recall hurting her hand. 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 Personal Factors Other Personal Factors That May Effect arthritis, fall history. Therapy/Recovery PT-OP-C Subjective Start: 09/23/22 18:58 Freq: Status: Active Protocol: Document 10/26/22 10:36 LRN (Rec: 10/26/22 11:19 LRN [id number]) OP-PT Subjective Patient Comments Patient Comments States the R forearm pain has been bad and it comes and goes . Pain rated 6-7/10. PT-OP-H Neuro Start: 09/23/22 18:58 Freq: Status: Active Protocol: Document 10/08/22 11:21 LRN (Rec: 10/08/22 12:20 LRN [id number]) Sensation Evaluation Gross Sensation Gross Sensation Right UE Impaired Sensation Description Numbness Comments Summary Comments Waking in the morning pt has numbness/tingling in the R anterior forearm and hand. Deep Tendon Reflex & Clonus Assessment Deep Tendon Reflex Right Bicep Deep Tendon Reflex 1+ Diminished Left Bicep Deep Tendon Reflex 2+ Normal Right Brachioradialis Deep Tendon Reflex 0 Absent Left Brachioradialis Deep Tendon Reflex 1+ Diminished PT-OP-J Posture/Palpation/Skin Start: 09/23/22 18:58 Freq: Status: Active Protocol: Document 10/08/22 11:21 LRN (Rec: 10/08/22 12:20 LRN [id number]) Posture Evaluation Position Standing Head/C-Spine Posture Forward Head T-Spine Posture Flattened Shoulder Posture (R) Elevated Scapula Posture (R) Elevated Arm Posture (L) Internally Rotated,(R) Internally Rotated Comments Posture Comments Dowagers hump Palpation Assessment Location R thenar eminence Palpation Location Thenar eminence Palpation Findings Tenderness R forearm Palpation Location Medial to brachioradialis. Palpation Findings Tenderness PT-OP-K Range of Motion Start: 09/23/22 18:58 Freq: Status: Active Protocol: Document 10/15/22 09:06 LRN (Rec: 10/15/22 09:52 LRN [id number]) Cervical Spine Range of Motion Cervical Spine Active Degrees Testing Position Sitting Flexion 31 Extension 35 Rotation Left 42 Rotation Right 45 Lateral Flexion Left 25 Lateral Flexion Right 29 PT-OP-L Special Tests Start: 09/23/22 18:58 Freq: Status: Active Protocol: Document 10/08/22 11:21 LRN (Rec: 10/08/22 12:20 LRN [id number]) Special Tests Wrist/Hand Special Tests Phalen's Test Test Results - bilaterally CMC Load & Grind Test Results + R thumb Comments Indicative of CMC arthritis. Enma's Test Results - R wrist Comments Negative for DeQueveins Neural Special Tests- Upper Body Median Nerve Tension Test Results - RUE Comments Not formally tested. Ulnar Nerve Tension Test Results + RUE Radial Nerve Tension Test Results + RUE PT-OP-M Strength Start: 09/23/22 18:58 Freq: Status: Active Protocol: Document 10/08/22 11:21 LRN (Rec: 10/08/22 12:20 LRN [id number]) Wrist Strength Wrist Manual Muscle Testing Right Flexion (C7) 4- Good- Extension (C6) 5 Normal Ulnar Deviation 5 Normal Radial Deviation 5 Normal Comments Pain in thenar eminence with MMT of flexion Left Flexion (C7) 5 Normal Extension (C6) 5 Normal Ulnar Deviation 5 Normal Radial Deviation 5 Normal Finger/Thumb Strength Finger Manual Muscle Testing Right Third Flexion (fingers C8) 4+ Good+ Extension (thumb C8) 3 Fair Adduction 3 Fair Abduction (fingers T1) 3 Fair Left Third Flexion (fingers C8) 5 Normal Extension (thumb C8) 5 Normal Adduction 5 Normal Abduction (fingers T1) 5 Normal Right Thumb Flexion (fingers C8) 3 Fair Extension (thumb C8) 5 Normal Adduction 5 Normal Abduction (fingers T1) 4+ Good+ Left Thumb Flexion (fingers C8) 5 Normal Extension (thumb C8) 5 Normal Adduction 5 Normal Abduction (fingers T1) 4+ Good+ Hand Partner Alliance Manager/Pinch Strength Hand Dominance Hand Dominance Right Hand Strength Right Comments 7kg, 5 lbs Left Comments 12 kg/22 lbs PT-OP-T Assessment and Plan Start: 09/23/22 18:58 Freq: Status: Active Protocol: Document 11/18/22 08:04 LRN (Rec: 11/18/22 08:09 N [id number]) Physical Therapy Assessment Goals Four Impairment R middle finger locking Short Term Goal (STG) Pt will wear a neutral positioning splint for R middle finger at nighttime to prevent locking. STG Duration 11/19/22 Carpenter Helper Goal (LTG) Pt will be educated in self care techniques to reduce trigger finger locking. 10/15/22: Pt educated in self massage to R middle finger joints to slowly obtain relief of locked finger. LTG Duration 01/07/23 (10/15/22 MET GOAL) Three Impairment Decreased R hand strength Impairment Partner Alliance Manager strength is: R hand: 7 kg or 5#, L hand 12 kg or 22#. Norm for 75+ women: R hand 42 .6#, L hand 37.6# Short Term Goal (STG) Pt will be independent in self care finger tendon glides. 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 LTG Duration 01/07/23 Two Impairment R thumb and R middle finger pain limiting function. Impairment R thenar eminence pain rated 4 /10, R middle finger pain rated 3/10. UE Quickdash score 38.63 (20- 39% impaired, score 20-39) Short Term Goal (STG) Pt will show knowledge in self care techniques to reduce pain and inflammation of the R hand. 10/15/22: Educated pt in contrast bath technique with handout issued. STG Duration 10/15/22 (10/15/22: MET GOAL ) Halfway Goal (LTG) Decrease R thumb pain to 0-1/ 10 and eliminated locking of R middle finger with improved function per UE Quickdash score (27 or less). LTG Duration 01/07/23 One Impairment Lacks appropriates self care HEP. Short Term Goal (STG) Pt will be educated in proper body mechanics for ADLs, and proper sitting/standing/ sleeping posture. STG Duration 10/29/22 Halfway Goal (LTG) Pt will be independent in an effective self care HEP of neck, R shoulder, wrist & finger ROM & strengthening ex' s. LTG Duration 01/07/23 Assessment Summary Assessment Pt cancelled her remaining 4 appts per scheduling, indicating pt was ready for DC . On her last attended appt, pt had R elbow pain rated 6-7/ 10 and ending therapy with pain rated 2-3/10 when straightening the elbow. She had a + response to use of hot /cold to the elbow during supine C. AROM exercises. No sharp pain after treatment with elbow flexion/ext although pain was still present. She had no pain with C. AROM with rot. No change in R elbow pain with gentle manual C.tx @ C6-C7; therefore didn't appear to be cervical related. The pt left message requesting discharge. No further therapy is planned. Physical Therapy Plan Discharge Physical Therapy Discharge Reasons Patient Request Discharge Comments Thank you for your referral.
== END 2022-11-23 15:52 | disposition home or self-care (01) ==
LOC: PHYS 10:30
PROVIDERS: Family Provider Family Medicine; PCP Family Medicine; Referring Provider Nurse Practitioner Family; Visit Provider Nurse Practitioner Family
DX: M19.041 Primary osteoarthritis, right hand (principal)
CPT/HCPCS: 97110; 97140; 97162; 97535

== ENCOUNTER 2022-12-07 10:18 | Outpatient (CLI) | payer MEDICARE, SELFPAY ==
[2022-12-07] VITALS (8 sets, daily range): BP systolic 101–161; BP diastolic 57–74; PULSE 71–76; RESP 16–17; TEMP 35.9; O2SAT 98–100
--- NOTE | 2022-12-07 10:19 | DI.RAD.S_ITS ---
PROCEDURE: PAIN L INTERLAMINAR/CAUDAL INJ INDICATIONS: SPONDYLOSIS COMPARISON: [facility], MR, MR LUMBAR SPINE WO CON, 08/25/2022, 17:22. FINDINGS: Fluoroscopic spot filming was performed to verify placement of a spinal needle at the L4-L5 level, as labeled on the films. Appropriate location of the needle tip was confirmed by injection of iodinated contrast. IMPRESSION: Intraprocedural examination within normal limits. Dictated by: João Montemayor M.D. on 12/07/2022 at 16:40 Approved by: João Montemayor M.D. on 12/07/2022 at 16:41
[2022-12-07] MEDS: MIDAZOLAM 2 MG/2 ML VIAL 1 MG IV (11:15)
[2022-12-07] MEDS: BUPIVACAINE 0.25% (PF) VIAL 2 ML INJ (11:18)
[2022-12-07] MEDS: IOPAMIDOL 15 ML VIAL 3 ML INJ (11:18)
[2022-12-07] MEDS: DEXAMETHASONE 10 MG/ML VIAL 20 MG INJ (11:19)
[2022-12-07] MEDS: BETAMETHASONE 30 MG/5 ML MDV 6 MG INJ (11:20)
--- NOTE | 2022-12-07 11:29 | P.PCN_ITS ---
Date/Time/Diagnoses Date of procedure: 12/07/22 Time of procedure: 11:29 Pre-procedure diagnosis: 1. HNP WITH RADICULAR FEATURES, 2. MULTILEVEL CENTRAL STENOSIS, Post-procedure diagnosis: same Procedure Notes Procedure: 1. FLUOROSCOPICALLY GUIDED CONTRAST CONTROLLED INTERLAMINAR EPIDURAL STEROID INJECTION -L4/5 Indications: The patient is referred by for treatment of Bilateral Foraminal Stenosis R>L LE symptoms. Physician: Karlos Marie Total Fluoroscopy time (seconds): 5 Total sedation minutes: 10 Complications: none Procedure in detail & Post-procedure care: FINDINGS Multilevel Central Spinal Stenosis with Nerve Root Compression DESCRIPTION OF PROCEDURE Fluoroscopically guided, contrast-controlled L4/5 translaminar epidural steroid injection. Following review of allergy and review of potential side effects and complications, including, but not necessarily limited to, infection, allergic reaction, local tissue breakdown, temporary as well as permanent nerve injury, paralysis, stroke and possible , the patient indicated that the patient understood and agreed to proceed. An informed consent document was signed by the patient, witnessed by a nurse, and placed in the patient's chart. Additionally, other treatment options including modalities, medications, and physical therapy were reviewed with the patient. After review of previous anaesthesic history and IV conscious sedation the patient was deemed safe to proceed with today?s procedure with IV conscious sedation as ASA class II designation. Safety time-out was performed to confirm patient ID, procedure to be performed and site of procedure. IV sedation was accomplished with a combination of 1mg of Versed was administered by the RN after DO order, titrated to patient comfort during the course of the procedure while the patient remained responsive to all verbal commands In the prone position, following sterile prep and drape of the lumbar region, the L4/5 translaminar space was identified fluoroscopically. The skin was anesthetized via a 25-gauge, 1.5inch needle with 1% lidocaine solution. At this point, a 22-gauge short bevel spinal needle was atraumatically introduced and advanced under fluoroscopic guidance into the region of the L4/5 translaminar space. Depth was confirmed on lateral view. Radiological data, including multiple fluoroscopic views of the lumbar spine, reveal a spinal needle at the L4/5 translaminar space. Lateral views then show placement of the needle in the epidural space. Subsequent views show contrast material flowing superiorly and inferiorly in the epidural space. No vascular or intrathecal uptake is observed. At this point, using loss of resistance technique with saline and air, the epidural space was entered. This was confirmed following negative aspiration with injection of approximately 1.5cc of Isovue 200, showing excellent epidural flow without vascular or intrathecal uptake. At this point, 1cc of 1% lidocaine solution combined with 3cc or 20mg of dexamethasone and 6mg betamethasone was injected without incident. The patient tolerated the procedure well without signs or symptoms of complications prior to transfer to the recovery area continued monitoring without incident. The patient was then transferred to the recovery area where they were observed for an appropriate period of time after the injection. The patient reported a VAS score of 6 prior to the procedure and a post- procedure VAS of 0. POST OP INSTRUCTIONS The patient was provided a Pain Log to continue to record their response to the target-specific procedure prior to follow-up visit with their referring physician. Additionally, specific post-injection care instructions and a contact number to our office were provided if concerns arise regarding possible complications associated with the procedure are suspected.
== END 2022-12-07 11:47 | disposition home or self-care (01) ==
PROVIDERS: Family Provider Family Medicine; PCP Family Medicine; Referring Provider Physical Medicine & Rehabilitation; Visit Provider Physical Medicine & Rehabilitation
DX: M48.061 Spinal stenosis, lumbar region without neurogenic claudication (principal); M51.16 Intervertebral disc disorders with radiculopathy, lumbar region
CPT/HCPCS: 62323; 99152; J0702; J1100; J2250; J3490

== ENCOUNTER → 2023-02-16 11:29 | Outpatient (CLI) | payer MEDICARE, SELFPAY ==
--- NOTE | 2023-02-16 11:30 | DI.RAD.S_ITS ---
PROCEDURE: XR HAND RT MIN 3V INDICATIONS: right hand degenerative joint disease TECHNIQUE: 3 views of the hand(s) acquired. COMPARISON: None. FINDINGS: Bones: No acute fracture or dislocation identified. Severe polyarticular degenerative changes, for example at the STT joint, 2nd digit DIP joint, 1st digit IP joint, and multiple other articulations. Periarticular lucencies are also demonstrated indeterminate for subchondral cystic change or erosions. Soft tissues: No suspicious soft tissue calcifications. IMPRESSION: Severe polyarticular degenerative changes of the hand and wrist. Periarticular lucencies also demonstrated indeterminate for subchondral cystic change or erosions and inflammatory arthropathy is not excludable. Dictated by: Wild Shankar M.D. on 02/16/2023 at 17:44 Approved by: Wild Shankar M.D. on 02/16/2023 at 17:47
== END ==
PROVIDERS: Family Provider Family Medicine; PCP Family Medicine; Referring Provider Physical Medicine & Rehabilitation; Visit Provider Physical Medicine & Rehabilitation
DX: M19.041 Primary osteoarthritis, right hand (principal)
CPT/HCPCS: 73130

== ENCOUNTER → 2023-04-06 13:01 | Outpatient (CLI) | payer MEDICARE, SELFPAY ==
--- NOTE | 2023-04-06 13:02 | DI.MG.S_ITS ---
BILATERAL DIGITAL SCREENING MAMMOGRAM 3D/2D WITH CAD: 04/06/2023 CLINICAL: Routine screening. Comparison is made to exams dated: 04/01/2022 mammogram, 01/21/2021 mammogram, and 01/01/2020 mammogram - [facility]. Both breasts are heterogeneously dense, which may obscure small masses (category c / 51-75% glandular tissue). Current study was also evaluated with a Computer Aided Detection (CAD) system. There are benign calcifications in both breasts. There also are benign vascular calcifications in both breasts. There are mole markers on the left breast. No significant masses, calcifications, or other findings are seen in either breast. There has been no significant interval change. IMPRESSION: BENIGN There is no mammographic evidence of malignancy. A 1 year screening mammogram is recommended. This exam was interpreted at Station ID: [id number]. NOTE: For mammograms, a report in lay terms will be sent to the patient. Approximately 15% of breast malignancies will not be visualized mammographically. In the management of a palpable breast mass, a negative mammogram must not discourage biopsy of a clinically suspicious lesion. Electronically Signed By: Sammy marion/car:04/06/2023 17:37:42 copy to: LAURIE EASTON letter sent: Normal Exam ACR BI-RADS Category 2: Benign Finding(s) [id number]
== END ==
PROVIDERS: Family Provider Family Medicine; PCP Family Medicine; Referring Provider Family Medicine; Visit Provider Family Medicine
DX: Z12.31 Encounter for screening mammogram for malignant neoplasm of breast (principal)
CPT/HCPCS: 77063; 77067

== ENCOUNTER → 2023-05-17 09:23 | Outpatient (CLI) | payer MEDICARE, SELFPAY ==
[2023-05-17 11:11] LABS: Add Manual Diff / Slide Review NO; Basophils Absolute Auto 0 /uL (0-100); Basophils Percent Auto 0.6 % (0-2); Eosinophils Absolute Auto 300 /uL (0-450); Eosinophils Percent Auto 4.2 % (2-4); Hematocrit 40.2 % (36-46); Hemoglobin 13.8 g/dL (12.0-16.0); Lymphocytes Absolute Auto 2300 /uL (1100-4500); Lymphocytes Percent Auto 38.2 % (25-40); Mean Corpuscular HGB Conc 34.3 % (30-36); Mean Corpuscular Hemoglobin 31.4 PG (26-34); Mean Corpuscular Volume 91.5 fL (80-100); Monocytes Absolute Auto 600 /uL (0-900); Monocytes Percent Auto 9.5 % (3-14); Neutrophils Absolute Auto 2900 /uL (1500-7000); Neutrophils Percent Auto 47.5 % (50-75); Platelet Count 223 X10^3/uL (150-400); Red Cell Distribution Width 12.9 % (11.6-14.8); White Blood Cell Count 6.1 X10^3/uL (4.5-11.0)
[2023-05-17 11:31] LABS: Alanine Aminotransferase 31 IU/L (<35); Albumin 4.4 g/dL (3.5-5.0); Albumin Globulin Ratio 1.8 (1.0-2.8); Alkaline Phosphatase 68 U/L (38-126); Aspartate Aminotransferase 37 IU/L (14-36); BUN Creatinine Ratio 21.2 (6-22); Bilirubin Total 0.6 mg/dL (0.2-1.3); Blood Urea Nitrogen 18 mg/dL (7-17); Calcium 9.6 mg/dL (8.4-10.2); Carbon Dioxide 28 mmol/L (22-32); Chloride 99 mmol/L (98-107); Estimated Glomerular Filt Rate > 60 mL/min (>60); Globulin 2.5 g/dL (1.7-4.1); Glucose 99 mg/dL (80-110); HEMOLYSIS < 15 (0-50); Potassium 4.4 mmol/L (3.4-5.1); Sodium 133 mmol/L (137-145); Total Protein 6.9 g/dL (6.3-8.2)
[2023-05-17 12:07] LABS: TSH w/ Reflex to FT4 0.89 uIU/mL (0.47-4.68)
== END ==
PROVIDERS: Family Provider Family Medicine; PCP Family Medicine; Referring Provider Family Medicine; Visit Provider Family Medicine
DX: N28.9 Disorder of kidney and ureter, unspecified (principal); E87.1 Hypo-osmolality and hyponatremia; I10 Essential (primary) hypertension; E78.5 Hyperlipidemia, unspecified
CPT/HCPCS: 36415; 80053; 84443; 85025

== ENCOUNTER → 2023-09-07 10:31 | Outpatient (CLI) | payer MEDICARE, SELFPAY ==
[2023-09-07 11:24] LABS: Add Manual Diff / Slide Review NO; Basophils Absolute Auto 0 /uL (0-100); Basophils Percent Auto 0.6 % (0-2); Eosinophils Absolute Auto 300 /uL (0-450); Eosinophils Percent Auto 6.2 % (2-4); Hematocrit 38.9 % (36-46); Hemoglobin 13.4 g/dL (12.0-16.0); Lymphocytes Absolute Auto 2100 /uL (1100-4500); Lymphocytes Percent Auto 38.2 % (25-40); Mean Corpuscular HGB Conc 34.5 % (30-36); Mean Corpuscular Hemoglobin 31.8 PG (26-34); Mean Corpuscular Volume 92.3 fL (80-100); Monocytes Absolute Auto 500 /uL (0-900); Monocytes Percent Auto 9.5 % (3-14); Neutrophils Absolute Auto 2500 /uL (1500-7000); Neutrophils Percent Auto 45.5 % (50-75); Platelet Count 219 X10^3/uL (150-400); Red Blood Cell Count 4.22 X10^6/uL (4.0-5.2); Red Cell Distribution Width 12.6 % (11.6-14.8); White Blood Cell Count 5.6 X10^3/uL (4.5-11.0)
[2023-09-07 11:55] LABS: Alanine Aminotransferase 23 IU/L (<35); Albumin 4.4 g/dL (3.5-5.0); Albumin Globulin Ratio 1.8 (1.0-2.8); Alkaline Phosphatase 66 U/L (38-126); Aspartate Aminotransferase 35 IU/L (14-36); BUN Creatinine Ratio 15.8 (6-22); Bilirubin Total 0.6 mg/dL (0.2-1.3); Blood Urea Nitrogen 12 mg/dL (7-17); Calcium 9.2 mg/dL (8.4-10.2); Carbon Dioxide 27 mmol/L (22-32); Chloride 102 mmol/L (98-107); Cholesterol 181 mg/dL (140-199); Estimated Glomerular Filt Rate > 60 mL/min (>60); Globulin 2.5 g/dL (1.7-4.1); Glucose 88 mg/dL (80-110); HDL Cholesterol 81 mg/dL (40-60); HEMOLYSIS < 15 (0-50); LDL Cholesterol Calculated 80 mg/dL (<100); Potassium 4.2 mmol/L (3.4-5.1); Sodium 134 mmol/L (137-145); Total Protein 6.9 g/dL (6.3-8.2); Triglycerides 98 mg/dL (35-150)
[2023-09-07 11:58] LABS: Free T4, Direct Thyroxine 0.88 ng/dL (0.78-2.19)
[2023-09-07 12:12] LABS: Thyroid Stimulating Hormone 1.22 uIU/mL (0.47-4.68)
== END ==
LOC: LAB 10:34
PROVIDERS: Family Provider Family Medicine; PCP Family Medicine; Referring Provider Nurse Practitioner Family; Visit Provider Nurse Practitioner Family
DX: R79.89 Other specified abnormal findings of blood chemistry (principal); I10 Essential (primary) hypertension; E78.5 Hyperlipidemia, unspecified
CPT/HCPCS: 36415; 80053; 80061; 84439; 84443; 85025

== ENCOUNTER 2024-01-03 10:53 | Emergency (ER) | payer MEDICARE, SELFPAY ==
[2024-01-03 11:25] VITALS: BP 210/97; PULSE 72; RESP 16; TEMP 36.6; O2SAT 98; BMI 24.3
--- NOTE | 2024-01-03 11:30 | DI.RAD.S_ITS ---
PROCEDURE: XR WRIST RT MIN 3V INDICATIONS: fall right pain after fall TECHNIQUE: 4 views of the wrist were acquired. COMPARISON: None. FINDINGS: Bones: No fractures or dislocations. No suspicious bony lesions. Mildly displaced fracture of the radial metadiaphysis, which does not appear to extend to the joint surface. Soft tissues: No suspicious soft tissue calcifications. Soft tissue swelling of the wrist. IMPRESSION: Extra-articular fracture of the radial metadiaphysis. Dictated by: Hardeep Greer M.D. on 01/03/2024 at 11:52 Approved by: Hardeep Greer M.D. on 01/03/2024 at 11:53
--- NOTE | 2024-01-03 12:48 | ED_ITS ---
HPI - Extremity Injury (Upper) <Marilou Guadalupe PA-C - Last Filed: 01/03/24 15:12> General Chief Complaint: Extremity Injury, Upper Stated Complaint: needs wrist looked at Time Seen by Provider: 01/03/24 12:48 Source: patient Mode of arrival: Ambulatory History of Present Illness HPI narrative: This is an 88-year-old woman who presents with concern for right wrist pain after she had a fall today. Patient states that she tripped walking into [employer] on combination of uneven terrain and the shoe she is wearing she fell forward catching herself with her right hand and then hitting the right side of her head in the front as well. She states she has been having wrist pain and specifically with movement of her wrist pain since this happened. She denies any loss of consciousness and says she was able to get up right away. She denies any prodrome prior to the fall and states it was a mechanical fall. Since the fall she also denies any Headache vision change dizziness lightheadedness, difficulty with coordination or balance, nausea, vomiting or any other symptoms or concerns. Related Data Home Medications Medication Instructions Recorded Confirmed dorzolamide 22.3 mg-timolol 6.8 1 drp OPHTH BID ##0 06/02/16 09/14/23 mg/mL eye drops (Cosopt) latanoprost 0.005 % eye drops 1 drp OPHTH HS ##0 08/02/16 09/14/23 folic acid 800 mcg tablet 800 mcg PO DAILY for hair loss 11/08/22 09/14/23 turmeric root extract 1,053 mg 1,076 mg PO BID bone health 11/08/22 09/14/23 tablet zinc gluconate 50 mg tablet 50 mg PO DAILY immuneity 11/08/22 09/14/23 Previous Rx's Medication Instructions Recorded cholecalciferol (vitamin D3) 50 50 mcg PO DAILY #90 caps 06/04/20 mcg (2,000 unit) capsule rosuvastatin 5 mg tablet See Rx Instructions .Route 01/31/23 .COMPLEX #45 tabs citalopram 20 mg tablet 20 mg PO DAILY #90 tabs 03/18/23 lisinopril 10 1 tab PO DAILY #90 tabs 05/06/23 mg-hydrochlorothiazide 12.5 mg tablet meloxicam 15 mg tablet 15 mg PO DAILY #30 tabs 08/11/23 Allergies Allergy/AdvReac Type Severity Reaction Status Date / Time No Known Drug Allergies Allergy Verified 09/14/23 11:05 Review of Systems <Marilou Guadalupe PA-C - Last Filed: 01/03/24 15:12> Review of Systems Narrative: See HPI Patient History <Marilou Guadalupe PA-C - Last Filed: 01/03/24 15:12> Medical History Seasonal affective disorder Right knee DJD Renal insufficiency Right knee pain Hyponatremia Osteopenia (07/2008) Decreased thyroid stimulating hormone level Depression Hypertension Essential hypertension (07/11/17) Mixed anxiety depressive disorder Glaucoma (11/03/10) Hyperlipidemia (11/03/10) Social History Smoking Status: Former smoker Tobacco: How many years used: 14 second hand exposure: No alcohol intake: current substance use type: does not use Smoking Status: Former smoker alcohol intake frequency: 0-2 drinks per day Alcohol type: wine Substance Use Type: does not use Exam <Marilou Guadalupe PA-C - Last Filed: 01/03/24 15:12> Narrative Exam Narrative: GENERAL: [88] year old patient appears stated age. Well-developed patient, in mild distress. HEAD: There is a 7.5 x 4 cm hematoma with bluish bruising on the patient's right frontal parietal region just anterior to the temporal. Facial bones are stable, nontender, normal bite Atraumatic. Normocephalic. EYES: Pupils equal round and reactive. Extraocular motions intact. No scleral icterus. No injection or drainage. ENT: Nose without bleeding, purulent drainage. Throat without erythema, tonsillar hypertrophy or exudate. Airway patent. NECK: Trachea midline. Non tender CARDIOVASCULAR: Regular rate and rhythm without murmurs, gallops, or rubs. RESPIRATORY: Clear to auscultation. Breath sounds equal bilaterally. No wheezes, rales, or rhonchi. EXTREMITIES: There is mild swelling and slight deformity of the right distal radius/wrist. 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 Patient is able to perform pronation and supination flexion and extension of the wrist with increased pain with flexion and extension and reduced range of motion with these. She has point tenderness at the distal radius with associated swelling. No other edema or joint tenderness. BACK: No C-spine T-spine or L-spine tenderness step-off or deformity, back is Nontender without deformity or crepitance. No flank tenderness. NEURO: AOx3. SKIN: No rash or erythema of visible areas Initial Vital Signs Initial Vital Signs: Vital Signs Temperature 98 F 01/03/24 11:25 Pulse Rate 72 01/03/24 11:25 Respiratory Rate 16 01/03/24 11:25 Blood Pressure 210/97 H 01/03/24 11:25 Pulse Oximetry 98 01/03/24 11:25 Oxygen Delivery Method Room Air 01/03/24 11:25 <Linnette Velasco MD - Last Filed: 01/03/24 18:38> Initial Vital Signs Initial Vital Signs: Vital Signs Temperature 98 F 01/03/24 11:25 Pulse Rate 72 01/03/24 11:25 Respiratory Rate 16 01/03/24 11:25 Blood Pressure 210/97 H 01/03/24 11:25 Pulse Oximetry 98 01/03/24 11:25 Oxygen Delivery Method Room Air 01/03/24 11:25 Course <Marilou Guadalupe PA-C - Last Filed: 01/03/24 15:12> Orders Ordered: ED Orders 01/03/24 11:30 XR wrist RT min 3V Stat Vital Signs Vital signs: Vital Signs - 8 hr 01/03/24 11:25 01/03/24 14:22 01/03/24 15:35 Temperature 98 F Pulse Rate 72 61 65 Respiratory Rate 16 18 18 Blood Pressure 210/97 H 190/89 H 201/93 H Pulse Oximetry 98 100 100 Oxygen Delivery Method Room Air Room Air Room Air <Linnette Velasco MD - Last Filed: 01/03/24 18:38> Orders Ordered: ED Orders 01/03/24 11:30 XR wrist RT min 3V Stat Vital Signs Vital signs: Vital Signs - 8 hr 01/03/24 11:25 01/03/24 14:22 01/03/24 15:35 Temperature 98 F Pulse Rate 72 61 65 Respiratory Rate 16 18 18 Blood Pressure 210/97 H 190/89 H 201/93 H Pulse Oximetry 98 100 100 Oxygen Delivery Method Room Air Room Air Room Air MDM - Extremity Injury (Upper) <Marilou Guadalupe PA-C - Last Filed: 01/03/24 15:12> Differential Diagnosis Differential diagnosis: Likely sprain and strain of wrist, fracture of wrist and other (Head injury closed, mechanical fall) Imaging Data Extremity x-ray #1: My Impression: Agree with Radiology interpretation Radiologist's Impression: [address] [address] XRay Report Signed Patient: Maral Shane MR#: [id number] : 1935 Acct:[id number] Age/Sex: 88 / F Date of Service: 01/03/24 Loc: ED Accession Number: [id number] Procedure: XR wrist RT min 3V Ordering Provider: Linnette Velasco MD PROCEDURE: XR WRIST RT MIN 3V INDICATIONS: fall right pain after fall TECHNIQUE: 4 views of the wrist were acquired. COMPARISON: None. FINDINGS: Bones: No fractures or dislocations. No suspicious bony lesions. Mildly displaced fracture of the radial metadiaphysis, which does not appear to extend to the joint surface. Soft tissues: No suspicious soft tissue calcifications. Soft tissue swelling of the wrist. IMPRESSION: Extra-articular fracture of the radial metadiaphysis. Dictated by: Hardeep Greer M.D. on 01/03/2024 at 11:52 Approved by: Hardeep Greer M.D. on 01/03/2024 at 11:53 [facility] Narrative Medical decision making narrative: This is an 88-year-old woman who does not take blood thinners who presents with concern for right wrist pain after a FOOSH today at [employer] it was a mechanical fall/trip she also hit the right front side of her head secondarily after taking the brunt of the fall with her outstretched hand. X-ray of the right wrist shows a extra-articular radial metadiaphysis fracture. Patient was placed in a volar splint and sling, recommend orthopedic follow up closely for further evaluation and care. We discussed at length indications for head CT given she did hit her head today as well and she is 88 years old putting her at increased risk for intracranial hemorrhage. Patient declines having this study done today, we discussed risks and benefits of this evaluation and red flag/signs to look out for that could indicate intracranial hemorrhage at length. Patient was encouraged to follow up closely with PCP/Orthopedics, seek re-evaluation if she develops signs or symptoms that may indicate intracranial hemorrhage/head injury. She has no C-spine tenderness today on exam and had no loss of consciousness. Patient was hypertensive today in the emergency department, but asymptomatic from this. She endorsed that she has not yet taken her blood pressure medication as she normally takes with food and hadn't eaten yet. She is advised to take this is soon as she gets home. Return precautions provided, follow-up plan discussed, all questions answered. Discharge Plan Departure Patient Disposition: Home Clinical Impression: Fracture of right wrist Qualifiers: Encounter type: initial encounter Fracture type: closed Qualified Code(s): S62.101A - Fracture of unspecified carpal bone, right wrist, initial encounter for closed fracture Fall from standing Qualifiers: Encounter type: initial encounter Qualified Code(s): W19.XXXA - Unspecified fall, initial encounter Closed head injury without concussion Qualifiers: Encounter type: initial encounter Qualified Code(s): S09.90XA - Unspecified injury of head, initial encounter Activity Restrictions/Additional Instructions: *You have been diagnosed with [right wrist fracture, closed head injury] *What to do: *Please continue to take your regular medications as directed. [ ] New medication prescriptions sent to your pharmacy: [ ] [ ] New medication written as a paper prescription [X ] No new medications given *Please follow up with your primary care provider in 2-3 days, call for an appointment. Let them know you were seen in the Emergency Department and that we ask that you be seen in follow up. We will electronically transmit a record of today's note if your PCP is in our system. You have a fracture of the end of your radius which is 1 of the long bones in your forearm. We placed you in a supportive splint today, as well as a sling you should wear the sling at all times and keep the splint dry. I would like you to follow up closely with Orthopedics for further care. Their contact information is below I recommend you call their office to discuss plans for further evaluation and care as an outpatient. You can take Tylenol for pain if needed, although elevation will also help with pain. As we discussed at length today you did hit her head 2nd to catching herself with her wrist and given her age URI increased risk for having a bleed inside the brain when he ever you hit your head. You do have some bruising on your right forehead, and I recommended a CT scan today but after discussion you elected not to pursue this. Please do keep a close eye on your symptoms currently you seem to be asymptomatic from hitting her head but if you develop nausea vomiting sensitivity to light headaches vision change difficulty with balance or coordination in the next 2 weeks or so this could indicate internal hemorrhage/injury, please make sure you seek re-evaluation in the ER or call 911. Otherwise please follow up closely with Orthopedics I hope you feel better soon. *If you do not have a primary care provider please contact the [facility] Resource line at [phone]. They will ask some questions about your medical history and help get you set up with a doctor in the community. *Return to Emergency Department if you should have any new, worsening or concerning symptoms, such as [fever greater than 101 F, shaking chills, worsening pain, persistent vomiting or other bothersome symptoms] Prescriptions: No Action dorzolamide-timolol [Cosopt] 2 %/0.5 % drops 1 drp OPHTH BID Qty: 0 latanoprost 0.005 % drops 1 drp OPHTH HS Qty: 0 rosuvastatin 5 mg tablet See Rx Instructions .ROUTE .COMPLEX Qty: 45 3RF Dose Instruction: TAKE 1/2 TABLET (2.5MG) DAILY Rx Instructions: TAKE 1/2 TABLET (2.5MG) DAILY citalopram 20 mg tablet 20 mg PO DAILY Qty: 90 3RF meloxicam 15 mg tablet 15 mg PO DAILY Qty: 30 2RF lisinopril-hydrochlorothiazide 10-12.5 mg tablet 1 tab PO DAILY Qty: 90 3RF cholecalciferol (vitamin D3) 50 mcg (2,000 unit) capsule 50 mcg PO DAILY Qty: 90 0RF folic acid 800 mcg tablet 800 mcg PO DAILY turmeric root extract 1,053 mg tablet 1,076 mg PO BID zinc gluconate 50 mg tablet 50 mg PO DAILY Referrals: Aura Bucio FNP-BC [Primary Care Provider] - Julee Jaimes MD [Physician] - (R meta diaphysis radial fx/FOOSH) Stand Alone Forms: Patient Portal/API ED Sign-out <Linnette Velasco MD - Last Filed: 01/03/24 18:38> Cosign ED Attending Cosignature Attestation: I was immediately available in the department for consultation throughout this patient's visit. Linnette Velasco MD
--- NOTE | 2024-01-03 13:07 | PC.NURSE ---
bruise noted to right temporal. Eyes equal and reactive, denies headache or c spine tenderness upon palpation of spine
[2024-01-03 14:22] VITALS: BP 190/89; PULSE 61; RESP 18; O2SAT 100
[2024-01-03 15:35] VITALS: BP 201/93; PULSE 65; RESP 18; O2SAT 100
== END 2024-01-03 15:35 | disposition home or self-care (01) ==
PROVIDERS: Emergency Provider Student in an Organized Health Care Education/Training Program; Family Provider Family Medicine; PCP Nurse Practitioner Family
DX: S52.551A Other extraarticular fracture of lower end of right radius, initial encounter for closed fracture (principal); S09.90XA Unspecified injury of head, initial encounter; W01.0XXA Fall on same level from slipping, tripping and stumbling without subsequent striking against object, initial encounter; Y93.01 Activity, walking, marching and hiking; Y92.512 Supermarket, store or market as the place of occurrence of the external cause
CPT/HCPCS: 29125; 73110; 99283

== ENCOUNTER → 2024-03-22 16:10 | Outpatient (CLI) | payer MEDICARE, SELFPAY ==
[2024-03-22 19:53] LABS: COVID-19 CEPHEID 4-PLEX PCR Negative (Negative); Influenza A - CEPHEID Flu A NEGATIVE (NEGATIVE); Influenza B - CEPHEID Flu B NEGATIVE (NEGATIVE); Respiratory Syncytial Virus Negative (Negative)
== END ==
LOC: LAB 16:35
PROVIDERS: Family Provider Family Medicine; PCP Nurse Practitioner Family; Visit Provider Physician Assistant
DX: R09.81 Nasal congestion (principal)
CPT/HCPCS: 0241U

== ENCOUNTER → 2024-04-18 13:26 | Outpatient (CLI) | payer MEDICARE, SELFPAY ==
--- NOTE | 2024-04-18 | DI.MG.S_ITS ---
BILATERAL DIGITAL SCREENING MAMMOGRAM 3D/2D WITH CAD: 04/18/2024 CLINICAL: Routine screening. Comparison is made to exams dated: 04/06/2023 mammogram, 04/01/2022 mammogram, and 01/21/2021 mammogram - [facility]. There are scattered areas of fibroglandular density (category b / 25%-50% glandular tissue). Current study was also evaluated with a Computer Aided Detection (CAD) system. There are benign calcifications in both breasts. There also are benign vascular calcifications in both breasts. There are mole markers on the left breast. No significant masses, calcifications, or other findings are seen in either breast. There has been no significant interval change. IMPRESSION: BENIGN There is no mammographic evidence of malignancy. A 1 year screening mammogram is recommended. This exam was interpreted at Station ID: [id number]. NOTE: For mammograms, a report in lay terms will be sent to the patient. Approximately 15% of breast malignancies will not be visualized mammographically. In the management of a palpable breast mass, a negative mammogram must not discourage biopsy of a clinically suspicious lesion. Electronically Signed By: Sammy marion/car:04/18/2024 17:45:43 copy to: LAURIE EASTON letter sent: Normal Exam ACR BI-RADS Category 2: Benign
== END ==
LOC: MAMMO 13:27
PROVIDERS: Family Provider Family Medicine; PCP Nurse Practitioner Family; Referring Provider Nurse Practitioner Family; Visit Provider Nurse Practitioner Family
DX: Z12.31 Encounter for screening mammogram for malignant neoplasm of breast (principal)
CPT/HCPCS: 77063; 77067

== ENCOUNTER → 2024-05-04 10:39 | Outpatient (CLI) | payer MEDICARE, SELFPAY ==
[2024-05-04 11:54] LABS: Appearance Urine UA CLEAR; Bilirubin Urine UA NEGATIVE (NEGATIVE); Color Urine UA YELLOW; Glucose Urine UA NEGATIVE (Negative); Ketones Urine UA NEGATIVE (NEGATIVE); Leukocyte Esterase Urine UA NEGATIVE (NEGATIVE); Nitrite Urine UA NEGATIVE (Negative); Occult Blood Urine UA NEGATIVE (Negative); Protein Urine UA NEGATIVE (Negative); Specific Gravity Urine UA <=1.005 (1.000-1.035); Urobilinogen Urine UA 0.2 E.U./dL (0.2)
[2024-05-04 12:03] LABS: pH Urine UA 6.5 (4.5-8.0)
== END ==
PROVIDERS: Family Provider Family Medicine; PCP Nurse Practitioner Family; Referring Provider Nurse Practitioner Family; Visit Provider Nurse Practitioner Family
DX: R30.0 Dysuria (principal); R35.0 Frequency of micturition
CPT/HCPCS: 81003

== ENCOUNTER → 2025-05-13 09:11 | Outpatient (CLI) | payer MEDICARE, SELFPAY ==
[2025-05-13 10:14] LABS: Add Manual Diff / Slide Review NO; Hematocrit 39.7 % (36-46); Hemoglobin 13.6 g/dL (12.0-16.0); Lymphocytes Absolute Auto 2200 /uL (1100-4500); Mean Corpuscular HGB Conc 34.3 % (30-36); Mean Corpuscular Hemoglobin 31.2 PG (26-34); Mean Corpuscular Volume 91.1 fL (80-100); Platelet Count 256 X10^3/uL (150-400)
[2025-05-13 10:48] LABS: Alanine Aminotransferase 19 IU/L (<35); Albumin 4.4 g/dL (3.5-5.0); Albumin Globulin Ratio 1.9 (1.0-2.8); Alkaline Phosphatase 74 U/L (38-126); Blood Urea Nitrogen 16 mg/dL (7-17); Calcium 10.2 mg/dL (8.4-10.2); Carbon Dioxide 27 mmol/L (22-32); Chloride 98 mmol/L (98-107); Cholesterol 229 mg/dL (140-199); Estimated Glomerular Filt Rate > 60 mL/min (>60); Globulin 2.3 g/dL (1.7-4.1); Glucose 103 mg/dL (70-99); HDL Cholesterol 99 mg/dL (40-60); HEMOLYSIS < 15 (0-50); Potassium 4.2 mmol/L (3.4-5.1); Sodium 135 mmol/L (137-145); Total Protein 6.7 g/dL (6.3-8.2); Triglycerides 113 mg/dL (35-150)
[2025-05-13 11:17] LABS: TSH w/ Reflex to FT4 1.58 uIU/mL (0.47-4.68)
[2025-05-13 11:39] LABS: Vitamin B12 Reflex MMA if <400 866 pg/mL (239-931)
== END ==
PROVIDERS: PCP Family Medicine; Referring Provider Family Medicine; Visit Provider Family Medicine
DX: Z13.220 Encounter for screening for lipoid disorders (principal); R53.83 Other fatigue
CPT/HCPCS: 36415; 80053; 80061; 82607; 84443; 85025

== ENCOUNTER → 2025-05-13 15:48 | Outpatient (CLI) | payer MEDICARE, SELFPAY ==
--- NOTE | 2025-05-13 15:49 | DI.MG.S_ITS ---
MM screening mammo BI: 05/13/2025. BI-RADS: 2
== END ==
LOC: MAMMO 15:48
PROVIDERS: PCP Family Medicine; Referring Provider Family Medicine; Visit Provider Family Medicine
DX: Z12.31 Encounter for screening mammogram for malignant neoplasm of breast (principal); R92.333 Mammographic heterogeneous density, bilateral breasts
CPT/HCPCS: 77063; 77067